=== PATIENT | male | born 1970 | race Caucasian/White ===

== ENCOUNTER 2017-05-28 23:49 | Observation (INO) | payer BC, OTHER ==
[~2017-05-28] VITALS: Ht 175.3 cm; Wt 73.3 kg
[2017-05-29 00:19] LABS: HEMATOCRIT 45.2 % (42-52); HEMOGLOBIN 16.2 g/dL (14.0-18.0); MEAN CELL VOLUME 88.3 fL (80-100); MEAN CORPUSCULAR HEMOGLOBIN 31.6 pg (25-34); MEAN CORPUSCULAR HGB CONC 35.8 g/dl (32-36); MEAN PLATELET VOLUME 11.2 fL (7.4-10.4); PLATELET COUNT 239 K/uL (130-400); RED CELL DISTRIBUTION WIDTH CV 12.8 % (11.5-14.5); RED CELL DISTRIBUTION WIDTH SD 40.9 fL (36.4-46.3); WHITE BLOOD COUNT 17.14 K/uL (4.8-10.8)
--- NOTE | 2017-05-29 00:26 | EMERGENCY ROOM VISIT NOTE ---
History Report prepared by John: Mary Jane Lizarraga Under the Supervision of: Dr. Shelby Agosto D.O. First contact with patient: 23:51 Chief Complaint: CHEST PAIN Stated Complaint: CHEST PAIN History of Present Illness The patient is a 47 year old male who presents to the Emergency Room with complaints of constant chest pain beginning 1 hour ago. The patient states that tonight he had a pain in his left arm before he went to bed. He reports that 1 hour ago he woke up with severe chest pain and had shortness of breath. He notes that his gave him 2 aspirin and shortly after he broke out into a sweat before calling an ambulance. The patient states that he got 2 nitroglycerin en route to the hospital and the second one took his pain away. He complains of a headache from the nitroglycerin and shoulder and arm tightness. He denies any abdominal pain, leg cramping, and leg swelling. He notes that his mom has a history of triple bypass at 73 and his father also has had heart issues. The patient reports that he is a smoker and has not seen a doctor in 20 years. Source of History: patient Onset: 1 hour ago Position: chest Timing: constant Associated Symptoms: No abdominal pain Note: Pt complains of shoulder and arm tightness. He denies any leg cramping and leg swelling. Review of Systems See HPI for pertinent positives & negatives. A total of 10 systems reviewed and were otherwise negative. Past Medical & Surgical Medical Problems: (1) Acid reflux Family History No pertinent family history stated. Social History Marital Status: Housing Status: lives with significant other Occupation Status: employed Current/Historical Medications No Active Prescriptions or Reported Meds Allergies Coded Allergies: No Known Allergies (Unverified , 05/29/17) Physical Exam Vital Signs Date Time Temp Pulse Resp B/P (MAP) Pulse Ox O2 Delivery O2 Flow Rate FiO2 05/29/17 00:31 83 97/59 05/29/17 00:19 84 18 96 05/29/17 00:01 108/71 05/28/17 23:57 87 05/28/17 23:54 97 Room Air 05/28/17 23:52 122/74 05/28/17 23:51 36.5 89 18 122/74 97 Room Air Physical Exam HEENT: Head - normocephalic and atraumatic Pupils are equal, round, and reactive to light. Extraocular eye muscles are intact, and sclera are anicteric. Nose - moist nasal mucosa without discharge. Mouth - moist buccal mucosa. Oropharynx is nonerythematous and there is no tonsillar exudate or edema noted. Neck: Supple; no JVD, nuchal rigidity, cervical lymphadenopathy, or auscultated bruits. Heart: Regular rate and rhythm. There is a normal S1 and S2 with no murmurs, clicks, or gallops appreciated. Lungs: Clear to auscultation bilaterally with no wheezes, rales, or rhonchi. Abdomen: Soft, completely nontender, nondistended, with good bowel sounds. There are no palpable pulsatile masses or hepatosplenomegaly. There is no guarding, rigidity, or rebound noted. Extremities: No evidence of cyanosis, clubbing, or edema. There are easily palpable peripheral pulses. Skin: warm and dry with good turgor and no rashes. Medical Decision & Procedures ER Provider Diagnostic Interpretation: X-ray results as stated below per interpretation by me: Chest X-Ray: No cardiomegaly, narrow mediastinum, no pulmonary infiltrates. Laboratory Results Test 05/28/17 23:15 05/29/17 00:29 RDW Standard Deviation 40.9 fL (36.4-46.3) RDW Coefficient of Variation 12.8 % (11.5-14.5) Mean Platelet Volume 11.2 fL (7.4-10.4) Est Creatinine Clear Calc Drug Dose 68.8 ml/min Creatine Kinase MB 0.5 ng/ml (0.5-3.6) Creatine Kinase MB Ratio (0-3.0) Prothrombin Time 10.0 SECONDS (9.0-12.0) Prothromb Time International Ratio 1.0 (0.9-1.1) Activated Partial Thromboplast Time 24.0 SECONDS (21.0-31.0) Partial Thromboplastin Ratio 0.9 Total Creatine Kinase 66 U/L (39-308) Laboratory results per my review. Medications Administered Medications (Trade) Dose Ordered Sig/Shayla Route Start Time Stop Time Status Last Admin Dose Admin Fentanyl Citrate (Fentanyl Inj) 50 mcg NOW ONCE IV 05/29/17 01:30 05/29/17 01:31 DC 05/29/17 01:23 50 MCG Procedure 0130: Fentanyl Inj 50mcg IV. ECG Indication: chest pain Rate (beats per minute): 79 Rhythm: normal sinus Findings: no acute ischemic change, no ectopy Change: EKG #2: Normal Sinus, 73, no acute ischemia, no ectopy. ED Course 2350: Past medical records reviewed. The patient was evaluated in room A11. A complete history and physical exam was performed. Labs were drawn as above. A twelve-lead EKG was obtained as described above. 2354: I reviewed the two prehospital EKGs. The patient had a portable chest x- ray as described above. 0101: I reevaluated and updated the patient. He is having chest tightness. 0122: I reevaluated the patient. He is still having pain. 0130: Fentanyl Inj 50mcg IV. 0135: Discussed the patient's case with Dr. Seals of [facility]. The patient will be evaluated for further management. 0147: Upon reevaluation, I discussed findings and results with the patient. He verbalized agreement of the treatment plan. [facility] The patient will be evaluated for further management and care. Medical Decision The patient is a 47 year old male who presents to the ED with chest pain. Differential diagnosis includes STEMI, ACS, aortic dissection, GERD, costochondritis. . LABS: WBC 17.1 most likely secondary to demargination Stable H&H Glucose 124 Normal Coags Negative Cardiac Enzymes Normal Renal Function This is a 47-year-old male patient who presents to the emergency department with a sudden onset of chest discomfort. The patient describes some discomfort in the left arm prior to going to sleep but then awoke with severe pain in the left anterior chest. He was given nitroglycerin by EMS with complete relief of his symptoms. The patient does have a strong family history of heart disease. He does not see a physician regularly. He does smoke. Cardiac enzymes were negative. EKG showed no ischemic changes. The patient's chest discomfort did return while he was here in the emergency department. His blood pressure was marginal so I did not for cough given him nitroglycerin. He was given 50 g of IV fentanyl which did relieve his symptoms. [facility] will [facility] for further management. Medication Reconcilliation Current Medication List: was personally reviewed by me Blood Pressure Screening Patient's blood pressure: Normal blood pressure Blood pressure disposition: Did not require urgent referral Consults Time Called: 012 Consulting Physician: Dr. Arnel Madrid Returned Call: 0135 Discussed the patient's case with Dr. Thomas. The patient will be evaluated for further management. Impression Primary Impression: Left sided chest pain Scribe Attestation The scribe's documentation has been prepared under my direction and personally reviewed by me in its entirety. I confirm that the note above accurately reflects all work, treatment, procedures, and medical decision making performed by me. Departure Information Dispostion Being Evaluated By Hospitalist Prescriptions No Active Prescriptions or Reported Meds Referrals Shawna Belle M.D. (MEDICAL) (PCP) Patient Instructions My [facility]
[2017-05-29 00:50] LABS: BLOOD UREA NITROGEN 18 mg/dl (7-18); CALCIUM 8.6 mg/dl (8.5-10.1); CARBON DIOXIDE 24 mmol/L (21-32); CKMB 0.5 ng/ml (0.5-3.6); GLUCOSE 124 mg/dl (70-99); SODIUM 136 mmol/L (136-145)
[2017-05-29 01:06] LABS: POTASSIUM 3.9 mmol/L (3.5-5.1)
[2017-05-29] MEDS ORDERED: FENTANYL CITRATE INJ 50 MCG/1 ML 2 ML VIAL IV ONE (01:30)
--- NOTE | 2017-05-29 01:59 | History and Physical ---
History & Physical Date & Time of Service: May 29, 2017 at 01:58 . Chief Complaint: chest pain . Primary Care Physician: Shawna Belle M.D. (MEDICAL) . History of Present Illness Source: patient, family, hospital records 47 YO male followed by Dr. Belle for Family Medicine. He has enjoyed good health. History of GERD; no other problems. This evening he experienced some left arm pain as he was retiring to bed around 21:45. At 2230 he experienced severe midsternal pressure radiating to his left arm, associated with SOB and diaphoresis. His gave him 1000 mg of aspirin and called 911. Received 2 doses of SL NTG en route to the ED with relief of symptoms. No exertional chest pain or dyspnea. Known risk factors for ischemic heart disease: smoking, family history. Drinks about 3 pots of coffee and 80 ounces of iced tea daily. Has history of GERD, but symptoms tonight were different. . Past Medical/Surgical History Chronic Medical Problems: (1) Acid reflux Status: Chronic Past Surgical History: none . Family History FATHER Diabetes mellitus Colon cancer Coronary artery disease MOTHER Diabetes mellitus Coronary artery disease BROTHER Diabetes mellitus Social History Smoking Status: Current Every Day Smoker Alcohol Use: occasionally Marital Status: Multi-Drug Resistant Organisms History of MDRO: No Allergies Coded Allergies: No Known Allergies (Unverified , 05/29/17) Home Medications No Active Prescriptions or Reported Meds Review of Systems Constitutional: + fever (few days ago associated with rhinitis and cough), No weight loss Eyes: No worsening of vision, No diplopia ENT: + nasal symptoms Respiratory: + cough (few days ago, improved), No dyspnea on exertion Cardiovascular: + problem reported (as noted in HPI) Abdomen: + diarrhea (last 2 days), No nausea, No vomiting, No GI bleeding Musculoskeletal: + joint pain (knee pain) Genitourinary - Male: No hematuria, No dysuria Neurologic: + problem reported (headache after NTG) Endocrine: No excessive thirst, No excessive urination Hematologic / Lymphatic: No abnormal bleeding/bruising Integumentary: No rash, No new/changing skin lesions Physical Exam Vital Signs Date Time Temp Pulse Resp B/P (MAP) Pulse Ox O2 Delivery O2 Flow Rate FiO2 05/29/17 00:31 83 97/59 05/29/17 00:19 84 18 96 05/29/17 00:01 108/71 05/28/17 23:57 87 05/28/17 23:54 97 Room Air 05/28/17 23:52 122/74 05/28/17 23:51 36.5 89 18 122/74 97 Room Air General Appearance: WD/WN, no apparent distress Head: normocephalic, atraumatic Eyes: normal inspection, PERRL, EOMI, sclerae normal ENT: normal ENT inspection, hearing grossly normal, pharynx normal Neck: supple, no adenopathy, thyroid normal, no JVD, trachea midline Respiratory/Chest: lungs clear, no respiratory distress, no accessory muscle use Cardiovascular: regular rate, rhythm, no edema, no gallop, no JVD, no murmur, normal peripheral pulses Abdomen/GI: normal bowel sounds, non tender, soft, no organomegaly, no pulsatile mass Extremities/Musculoskelatal: normal inspection, no calf tenderness, normal capillary refill, no pedal edema Neurologic/Psych: staff auditor II-XII nml as tested (PERRL, EOMI, no facial palsy), no motor/sensory deficits (motor strength upper and lower extremity intact) Skin: normal color, warm/dry, no rash Lymphatic: no adenopathy (cervical) Diagnostics Laboratory Results Results Past 24 Hours Test 05/28/17 23:15 05/29/17 00:29 Range/Units White Blood Count 17.14 4.8-10.8 K/uL Red Blood Count 5.12 4.7-6.1 M/uL Hemoglobin 16.2 14.0-18.0 g/dL Hematocrit 45.2 42-52 % Mean Corpuscular Volume 88.3 80-100 fL Mean Corpuscular Hemoglobin 31.6 25-34 pg Mean Corpuscular Hemoglobin Concent 35.8 32-36 g/dl RDW Standard Deviation 40.9 36.4-46.3 fL RDW Coefficient of Variation 12.8 11.5-14.5 % Platelet Count 239 130-400 K/uL Mean Platelet Volume 11.2 7.4-10.4 fL Sodium Level 136 136-145 mmol/L Potassium Level 3.9 3.5-5.1 mmol/L Chloride Level 104 98-107 mmol/L Carbon Dioxide Level 24 21-32 mmol/L Anion Gap 8.0 3-11 mmol/L Blood Urea Nitrogen 18 7-18 mg/dl Creatinine 1.30 0.60-1.40 mg/dl Est Creatinine Clear Calc Drug Dose 68.8 ml/min Estimated GFR () 74.3 Estimated GFR (Non- 64.1 BUN/Creatinine Ratio 13.6 10-20 Random Glucose 124 70-99 mg/dl Calcium Level 8.6 8.5-10.1 mg/dl Total Creatine Kinase 66 39-308 U/L Creatine Kinase MB 0.5 0.5-3.6 ng/ml Creatine Kinase MB Ratio 0-3.0 Troponin I < 0.015 0-0.045 ng/ml Prothrombin Time 10.0 9.0-12.0 SECONDS Prothromb Time International Ratio 1.0 0.9-1.1 Activated Partial Thromboplast Time 24.0 21.0-31.0 SECONDS Partial Thromboplastin Ratio 0.9 Diagnostic Radiology Chest x-ray reviewed. Normal cardiac silhouette. No infiltrates, effusions, CHF. (preliminary interpretation by undersigned) . EKG EKG performed at 23:51 reviewed and demonstrated NSR at 80 / minute, no acute ST or T-wave abnormalities. EKG performed at 01:01 reviewed and demonstrated NSR at 73 / minute, no acute ST or T-wave abnormalities. . Impression Assessment and Plan CHEST PAIN New onset chest pain today at rest, relieved by NTG. Troponin normal. No acute EKG changes. No exertional CP / SOB. Risk factors for CAD: smoking, family history (both parents). Check serial troponins and EKG's. Check echo. Consult Cardiology. Consider noncardiac (GI) etiologies if cardiac work-up negative. SMOKING Smoking cessation counseling. VTE PROPHYLAXIS Very low risk for VTE. Prophylaxis not indicated. Ambulate. DISPOSITION Expected discharge to home. Family Medicine follow-up with Dr. Belle. . VTE Prophylaxis Given or contraindicated: Treatment not indicated
[2017-05-29] MEDS ORDERED: ACETAMINOPHEN 325 MG TAB PO PRN (02:00)
[2017-05-29] MEDS ORDERED: MoRPHine SULFATE 2 MG/ML CARP IV PRN (02:00)
[2017-05-29] MEDS ORDERED: ALUMINUM/MAGNESIUM/SIMETH (MAALOX MAX) 30 ML UDC PO PRN (02:00)
[2017-05-29] MEDS ORDERED: NITROGLYCERIN 0.4 MG SL PER TAB CHARGE SL PRN (02:00)
[2017-05-29 02:45] VITALS: O2SAT 97
--- NOTE | 2017-05-29 02:55 | NUR ---
A: pt received into room 287-1 from ED. pt oriented to room and call mosquera system. child monitor applied and VS obtained. for complete assessment, see EMR. code word and fall agreement signed. will continue to monitor.
[2017-05-29] MEDS ORDERED: IV FLUIDS COMPLETED PRN (03:00)
[2017-05-29 03:08] VITALS: BP 121/74; PULSE 76; TEMP 36.5; Ht 175.3 cm; Wt 73.3 kg
[2017-05-29] MEDS ORDERED: D5W AND LACTATED RINGERS 1,000 ML IV SCH (03:15)
--- NOTE | 2017-05-29 04:00 | NUR ---
OBS: pt alert and oriented X4, resting comfortably in bed. VSS on room air. denies chest pain and SOB. lung sounds clear throughout. case monitor in place, sinus rhythm on the monitor. pt OOB independently in the room. pt NPO. cardiology to see pt in the morning. call mosquera within reach. will continue to monitor.
[2017-05-29 04:45] VITALS: BP 94/57; PULSE 72; TEMP 36.7; O2SAT 98
--- NOTE | 2017-05-29 06:46 | DIAGNOSTIC IMAGING REPORT ---
CHEST ONE VIEW PORTABLE CLINICAL HISTORY: 47 years-old Male presenting with eval for cp. TECHNIQUE: Portable upright AP view of the chest was obtained. COMPARISON: 04/12/2007. FINDINGS: Cardiomediastinal silhouette normal. Lungs and pleural spaces clear. Osseous structures normal. Upper abdomen normal. IMPRESSION: 1. No acute cardiopulmonary disease. Electronically signed by: Chau Prater M.D. 05/29/2017 6:44 AM Dictated Date/Time: 05/29/2017 6:44 AM
[2017-05-29 06:48] LABS: HEMATOCRIT 44.7 % (42-52); HEMOGLOBIN 15.3 g/dL (14.0-18.0); MEAN CELL VOLUME 88.3 fL (80-100); MEAN CORPUSCULAR HEMOGLOBIN 30.2 pg (25-34); MEAN CORPUSCULAR HGB CONC 34.2 g/dl (32-36); MEAN PLATELET VOLUME 10.2 fL (7.4-10.4); PLATELET COUNT 204 K/uL (130-400); RED CELL DISTRIBUTION WIDTH SD 41.5 fL (36.4-46.3); WHITE BLOOD COUNT 11.26 K/uL (4.8-10.8)
[2017-05-29 07:27] LABS: ALBUMIN 3.4 gm/dl (3.4-5.0); ALT/SGPT 41 U/L (12-78); BLOOD UREA NITROGEN 16 mg/dl (7-18); CALCIUM 8.2 mg/dl (8.5-10.1); CARBON DIOXIDE 26 mmol/L (21-32); CHOLESTEROL 108 mg/dl (0-200); CREATININE 1.18 mg/dl (0.60-1.40); GLUCOSE 106 mg/dl (70-99); LIPASE 114 U/L (73-393); POTASSIUM 3.9 mmol/L (3.5-5.1); SODIUM 139 mmol/L (136-145)
[2017-05-29 07:32] LABS: ALKALINE PHOSPHATASE 55 U/L (45-117); AST/SGOT 12 U/L (15-37); LDL CHOLESTEROL CALCULATED 57 mg/dl; TOTAL PROTEIN 6.9 gm/dl (6.4-8.2)
--- NOTE | 2017-05-29 08:00 | NUR ---
A/OBS: Alert and oriented x4. VSS on room air. Resting comfortably in bed at this time. Denies pain, chest pain or shortness of breath. Monitor in place with NSR noted. IV fluids infusing as ordered. NPO for stress echo today. Plans to return home on discharge. Continue to monitor.
[2017-05-29 08:02] VITALS: BP 116/76; PULSE 83; TEMP 36.8; O2SAT 97
[2017-05-29] MEDS ORDERED: ASPIRIN 81 MG ECTAB PO SCH (09:00)
--- NOTE | 2017-05-29 10:45 | Cardiology Consultation ---
Cardiology Consultation Date of Consultation: May 29, 2017 Requesting Physician: Dr. Seals Attending Inside Channel Account Manager: Dr. Galindo (Cassidy Guillory PA-C) History of Present Illness Patient is a 47 year old male with history of chronic tobacco abuse smoking 1 PPD, family history of premature CAD in mother, father, brother, who personally takes no medications as outpatient and has not sought medical treatment in > 10 years. Patient was in usual state of health yesterday. prior to going to bed he noted left arm pain. He fell asleep and was awoken about 1 hour later with substernal chest heaviness associated with diaphoresis, and shortness of breath. gave 1000 mg of ASA and called 911. En route he was treated with 2 SL nitro with mild improvement in pain. In ER, chest pain and symptoms improved. EKG was without ischemic changes. Cardiac enzymes unremarkable x 2. other labs within normal limits. At time of consult, patient admits to intermittent left sided chest tightness since admission. Waxing/waning symptoms. Not related to exertional activities. has 2/10 discomfort right now. No other symptoms currently. No diaphoreses, shortness of breath, nausea, palpitations or tachypalpitations. He admits to mild left sided arm/shoulder tightness over the last few months, but attributed this to carrying heavy objects and musculoskeletal injury. He is active on a daily basis at work. Does not formally exercise. He reports having a fever on Thursday with associated upper respiratory symptoms, but now resolved. He denies prior history of CAD, [place], CHF. No prior echo/stress test. (Cassidy Guillory PA-C) Past Medical/Surgical History Problem List: Medical Problems: (1) Acid reflux (Cassidy Guillory PA-C) Family History Colon cancer FATHER Coronary artery disease FATHER MOTHER Diabetes mellitus FATHER MOTHER BROTHER Father with [place] age 50's, Mother with stents in her 60's and CABG age 70's. Brother with "heart condition" but unsure of details. (Cassidy Guillory PA-C) Colon cancer FATHER Coronary artery disease FATHER MOTHER Diabetes mellitus FATHER MOTHER BROTHER (Donta Galindo D.OCarmen) Social History Smoking Status: Current Every Day Smoker Alcohol Use: occasionally Marital Status: Occupation: employed (Cassidy Guillory PA-C) Review Of Systems General: The patient denies weight change, night sweats, fever, chills. Head: The patient denies headache and prior head trauma. Cardiovascular: The patient denies chest pain or chest discomfort, dyspnea on exertion, palpitations, PND, orthopnea, edema, spontaneous shortness of breath, syncope and near syncope. Pulmonary: The patient denies cough, wheeze, pleurisy, hemoptysis, sputum, and excessive snoring. Gastrointestinal: The patient denies nausea, vomiting, diarrhea, constipation, bloating, hematemesis, hematochezia, and abdominal pain. Skin: The patient denies diaphoresis and rash. Musculoskeletal: The patient denies joint pain, joint swelling, myalgia, back pain, neck pain and prior injuries. Neurological: The patient denies prior stroke and seizures (Cassidy Guillory PA-C) Allergies Coded Allergies: No Known Allergies (Unverified , 05/29/17) Medications Reported Home Medications Medications Dose Route/Sig Max Daily Dose Days Date Category No Active Prescriptions or Reported Medications Rx (Cassidy Guillory PA-C) Physical Exam Vital Signs (Last 8hrs): Last 8 Hrs Date Time Temp Pulse Resp B/P (MAP) Pulse Ox O2 Delivery O2 Flow Rate FiO2 05/29/17 08:02 36.8 83 20 116/76 (89) 97 05/29/17 08:00 Room Air 05/29/17 04:45 36.7 72 16 94/57 (69) 98 Room Air 05/29/17 04:00 Room Air 05/29/17 03:08 36.5 76 18 121/74 Room Air 05/29/17 02:45 36.5 73 18 108/80 97 General Appearance: Alert and Oriented x3. NAD. Head: Normocephalic Atraumatic. Eyes: PERRLA, EOMI, conjunctiva and sclera clear Neck: Supple. No carotid bruits noted. No JVD. No HJD. Respiratory: Breath sounds clear to auscultation bilaterally. No w/r/r. Cardiovascular: Reg rate and rhythm. S1 and S2 noted. No murmurs, rubs, gallops. PMI non displace. Abdomen: Normal bowel sounds, soft nontender. no abdominal bruits. Extremities: No edema, no clubbing or cyanosis. distal pulses 2/4 bilaterally. Neuro: No focal deficits. Psychiatric: Normal affect. (Cassidy Guillory, CARLEEN) Data Last 24 Hours Test 05/28/17 23:15 05/29/17 00:29 05/29/17 06:30 White Blood Count 17.14 K/uL 11.26 K/uL Red Blood Count 5.12 M/uL 5.06 M/uL Hemoglobin 16.2 g/dL 15.3 g/dL Hematocrit 45.2 % 44.7 % Mean Corpuscular Volume 88.3 fL 88.3 fL Mean Corpuscular Hemoglobin 31.6 pg 30.2 pg Mean Corpuscular Hemoglobin Concent 35.8 g/dl 34.2 g/dl RDW Standard Deviation 40.9 fL 41.5 fL RDW Coefficient of Variation 12.8 % 13.0 % Platelet Count 239 K/uL 204 K/uL Mean Platelet Volume 11.2 fL 10.2 fL Sodium Level 136 mmol/L 139 mmol/L Potassium Level mmol/L 3.9 mmol/L 3.9 mmol/L Chloride Level 104 mmol/L 107 mmol/L Carbon Dioxide Level 24 mmol/L 26 mmol/L Anion Gap 8.0 mmol/L 6.0 mmol/L Blood Urea Nitrogen 18 mg/dl 16 mg/dl Creatinine 1.30 mg/dl 1.18 mg/dl Est Creatinine Clear Calc Drug Dose 68.8 ml/min 75.8 ml/min Estimated GFR () 74.3 83.5 Estimated GFR (Non- 64.1 72.0 BUN/Creatinine Ratio 13.6 13.4 Random Glucose 124 mg/dl 106 mg/dl Calcium Level 8.6 mg/dl 8.2 mg/dl Total Creatine Kinase U/L 66 U/L Creatine Kinase MB 0.5 ng/ml Creatine Kinase MB Ratio Troponin I < 0.015 ng/ml < 0.015 ng/ml Prothrombin Time 10.0 SECONDS Prothromb Time International Ratio 1.0 Activated Partial Thromboplast Time 24.0 SECONDS Partial Thromboplastin Ratio 0.9 Total Bilirubin 0.3 mg/dl Aspartate Amino Transf (AST/SGOT) 12 U/L Alanine Aminotransferase (ALT/SGPT) 41 U/L Alkaline Phosphatase 55 U/L Total Protein 6.9 gm/dl Albumin 3.4 gm/dl Globulin 3.5 gm/dl Albumin/Globulin Ratio 1.0 Triglycerides Level 119 mg/dl Cholesterol Level 108 mg/dl HDL Cholesterol 27 mg/dl LDL Cholesterol, Calculated 57 mg/dl VLDL Cholesterol, Calculated 24 mg/dl Cholesterol/HDL Ratio 4.0 Lipase 114 U/L Imaging: Chest xray: no active disease EKG: NSR with sinus arrhythmia. No abnormal ST/T wave changes Telemetry reviewed: NSR, no arrhythmias (Cassidy Guillory PA-C) Assessment & Plan 1. Chest pain -normal cardiac enzymes x2 -non ischemic EKG -risk factors for CAD include family history, chronic tobacco abuse 2. Family hsitory of CAD 3. Tobacco abuse. PLAN: Exercise stress echo to evaluate LV function at rest and with stress. R/O ischemia given symptoms and risk factors for underlying ishcemic heart disease. Continue ASA 81 mg daily. LDL well controlled. Further recommendations pending results of exercise stress echo. Smoking cessation encouraged Case discussed with Dr. Galindo (Cassidy Guillory PA-C) Cardiology attending: Pt seen and examined, agree with findings and assessment as per Cassidy Jackman. Atypical chest discomfort at rest. Stress testing nonischemic having completed 10 minutes on Varinder protocol. Did have leg discomfort on treadmill consistent with claudication. Recommend asa 81mg daily, enteric coated tablets, smoking cessation (had lengthy discussion) and increasing exercise. If no improvement should be evaluated with Dr. Burns of [facility] [place]. ok to d/c from cardiac standpoint. No need for antihypertensive or statin at this time. F/u with pcp for risk factor modifications and monitoring. (Donta Galindo, D.O.)
[2017-05-29 11:14] VITALS: BP 111/73; PULSE 84; TEMP 36.5; O2SAT 96
[2017-05-29] MEDS ORDERED: NURSING VERBAL MED ORDER ONE (11:30)
--- NOTE | 2017-05-29 12:00 | NUR ---
A/OBS: Assessment unchanged. Cleared by cardiology for discharge today, hospitalist notified. Discharge this afternoon pending hospitalist evaluation. Continue to monitor for now.
--- NOTE | 2017-05-29 12:21 | EXERCISE STRESS ECHO ---
*NOTICE TO RECEIVING LIBERTARIAN AGENCY This information is strictly Confidential and protected under [place] law. [place] law prohibits you from making any further disclosure of this information unless further disclosure is expressly permitted by the written consent of the person to whom it pertains or is authorized by law. A general authorization for the release of medical or other information is not sufficient for this purpose. Hospital accepts no responsibility if the information is made available to any other person, INCLUDING THE PATIENT. Interpretation Summary * Name: COTY RODRIGUEZ Study Date: 05/29/2017 09:46 AM BP: 103/62 mmHg * Patient Location: [facility]\S\N287\S\1 HR: 66 * : 1970 (M/d/yyyy) Gender: Male Height: 69 in * Age: 47 yrs Ethnicity: [place] Weight: 161 lb * Ordering Physician: Donta Galindo * Referring Physician: Self, Referred * Performed By: Shirley Hernandez RCS * * Reason For Study: CHEST PAIN * BSA: 1.9 m2 * -- Conclusions -- * Nonischemic exercise stress echocardiogram. * No arrhythmias. * Normal HR and BP response to exercise. * Above average exercise tolerance. * Testing terminated due to leg pain. * No chest pain was reproduced with stress. * At rest, normal LV chamber size with mild concentric LVH. * Normal LV systolic function, EF 60-65%. * No segmental left ventricular wall motion abnormalities are noted. * Normal diastolic function. * No significant valvular pathology. Procedure Details * ECHOEX, CPT #[id number] * ECHO COLOR FLOW, CPT #[id number] * ECHO DOPPLER, CPT #[id number] Left Ventricle * The left ventricle is normal in size. * There is mild concentric left ventricular hypertrophy. * Left ventricular systolic function is normal. * No segmental left ventricular wall motion abnormalities are noted. * Ejection Fraction = 60-65%. * Resting wall motion: Normal. Stress wall motion: Appropriate increase in Left ventricular systolic function and decrease in cavity size. No stress induced segmental wall motion abnormalities. Right Ventricle * The right ventricular cavity size is normal (basal dimension <4.2 cm in right ventricular apical 4-chamber view). * The right ventricular systolic function is normal as assessed by tricuspid annular plane systolic excursion (TAPSE) (normal >1.5 cm). Atria * The left atrial size is normal. * Right atrial size is normal. * No ASD detected; PFO is not assessed. Mitral Valve * The mitral valve is normal in structure and function. Tricuspid Valve * The tricuspid valve is normal in structure and function. Aortic Valve * The aortic valve is not well visualized. * No hemodynamically significant valvular aortic stenosis. * There is no significant aortic regurgitation. Pulmonic Valve * The pulmonary valve is not well seen, but the Doppler examination is normal without significant regurgitation or stenosis. Great Vessels * The aortic root is normal size. Pericardium * There is no pericardial effusion. Stress Parameters * Normal baseline electrocardiogram. * No arrhythmia were noted with stress. * The stress portion of this study was personally supervised by the undersigned interpreting physician. * Rest heart rate was '66' BPM. * Rest blood pressure was '103/62' * Maximum heart rate achieved was 157 bpm. * Maximum heart rate was 91 % of maximum age-predicted heart rate. * Maximum blood pressure was '164/52' * Total exercise time was '10:00' * Maximum exercise MET level achieved was '11.70' METS * Maximum treadmill speed was '4.20' miles per hour. * Maximum treadmill elevation was '16.00'% grade. Left Ventricular Diastolic Function * Pulse wave TDI of the anterior and posterior mitral annulas demonstrates normal LV relaxation MMode 2D Measurements and Calculations IVSd 1.2 cm IVSs 1.5 cm LVIDd 4.3 cm LVIDs 3.3 cm LVPWd 1.1 cm LVPWs 1.3 cm IVS/LVPW 1.2 FS 23.9 % EDV(Teich) 82.3 ml ESV(Teich) 42.8 ml EF(Teich) 48.0 % EDV(cubed) 78.6 ml ESV(cubed) 34.6 ml EF(cubed) 56.0 % % IVS thick 25.2 % % LVPW thick 21.7 % LV mass(C)d 169.4 grams LV mass(C)dI 89.9 grams/m\S\2 LV mass(C)s 157.4 grams LV mass(C)sI 83.6 grams/m\S\2 SV(Teich) 39.5 ml SI(Teich) 21.0 ml/m\S\2 SV(cubed) 44.0 ml SI(cubed) 23.3 ml/m\S\2 Ao root diam 2.9 cm Ao root area 6.8 cm\S\2 ACS 2.0 cm LA dimension 2.6 cm LA/Ao 0.89 LVAd ap4 34.8 cm\S\2 LVLd ap4 8.7 cm EDV(MOD-sp4) 112.9 ml EDV(sp4-el) 117.7 ml LVAs ap4 23.5 cm\S\2 LVLs ap4 7.8 cm ESV(MOD-sp4) 58.8 ml ESV(sp4-el) 60.4 ml EF(MOD-sp4) 48.0 % EF(sp4-el) 48.7 % LVAd ap2 28.1 cm\S\2 LVLd ap2 8.0 cm EDV(MOD-sp2) 82.7 ml EDV(sp2-el) 83.4 ml LVAs ap2 16.8 cm\S\2 LVLs ap2 6.7 cm ESV(MOD-sp2) 36.3 ml ESV(sp2-el) 35.7 ml EF(MOD-sp2) 56.1 % EF(sp2-el) 57.1 % LVLd %diff -8.23 % EDV(MOD-bp) 99.7 ml LVLs %diff -16.62 % ESV(MOD-bp) 49.4 ml EF(MOD-bp) 50.5 % SV(MOD-sp4) 54.1 ml SI(MOD-sp4) 28.7 ml/m\S\2 SV(MOD-sp2) 46.4 ml SI(MOD-sp2) 24.6 ml/m\S\2 SV(MOD-bp) 50.3 ml SI(MOD-bp) 26.7 ml/m\S\2 SV(sp4-el) 57.4 ml SI(sp4-el) 30.5 ml/m\S\2 SV(sp2-el) 47.7 ml SI(sp2-el) 25.3 ml/m\S\2 Doppler Measurements and Calculations MV E max luis 65.8 cm/sec MV A max luis 50.7 cm/sec MV E/A 1.3 MV P1/2t max luis 71.6 cm/sec MV P1/2t 108.5 msec MVA(P1/2t) 2.0 cm\S\2 MV dec slope 193.3 cm/sec\S\2 MV dec time 0.21 sec Ao V2 max 102.7 cm/sec Ao max PG 4.2 mmHg Ao max PG (full) 1.0 mmHg LV V1 max PG 3.2 mmHg LV V1 max 89.5 cm/sec PA V2 max 94.0 cm/sec PA max PG 3.5 mmHg
--- NOTE | 2017-05-29 13:02 | Progress Note ---
Medicine Progress Note Date & Time of Visit: May 29, 2017 at 12:34. Subjective Pt was seen and examined Lying in bed with at bedside with no distress Pt said that he feels fine Denies any chest pain, palpitation, dizziness and SOB Objective Last 8 Hrs Date Time Temp Pulse Resp B/P (MAP) Pulse Ox O2 Delivery O2 Flow Rate FiO2 05/29/17 12:00 Room Air 05/29/17 11:14 36.5 84 16 111/73 (86) 96 05/29/17 08:02 36.8 83 20 116/76 (89) 97 05/29/17 08:00 Room Air 05/29/17 04:45 36.7 72 16 94/57 (69) 98 Room Air Physical Exam: General- No acute distress Head- atraumatic Eyes- PERRL, EOMI ENT- oropharynx clear Neck- supple, no JVD Lungs- clear to auscultation Heart- regular rhythm; no murmur Abdomen- normal bowel sounds, soft Extremities- no pretibial edema, no calf tenderness Neuro- alert, oriented x 3; PERRL, EOMI Skin- warm & dry Laboratory Results: Last 24 Hours Test 05/28/17 23:15 05/29/17 00:29 05/29/17 06:30 05/29/17 12:04 White Blood Count 17.14 K/uL 11.26 K/uL Red Blood Count 5.12 M/uL 5.06 M/uL Hemoglobin 16.2 g/dL 15.3 g/dL Hematocrit 45.2 % 44.7 % Mean Corpuscular Volume 88.3 fL 88.3 fL Mean Corpuscular Hemoglobin 31.6 pg 30.2 pg Mean Corpuscular Hemoglobin Concent 35.8 g/dl 34.2 g/dl RDW Standard Deviation 40.9 fL 41.5 fL RDW Coefficient of Variation 12.8 % 13.0 % Platelet Count 239 K/uL 204 K/uL Mean Platelet Volume 11.2 fL 10.2 fL Sodium Level 136 mmol/L 139 mmol/L Potassium Level mmol/L 3.9 mmol/L 3.9 mmol/L Chloride Level 104 mmol/L 107 mmol/L Carbon Dioxide Level 24 mmol/L 26 mmol/L Anion Gap 8.0 mmol/L 6.0 mmol/L Blood Urea Nitrogen 18 mg/dl 16 mg/dl Creatinine 1.30 mg/dl 1.18 mg/dl Est Creatinine Clear Calc Drug Dose 68.8 ml/min 75.8 ml/min Estimated GFR () 74.3 83.5 Estimated GFR (Non- 64.1 72.0 BUN/Creatinine Ratio 13.6 13.4 Random Glucose 124 mg/dl 106 mg/dl Calcium Level 8.6 mg/dl 8.2 mg/dl Total Creatine Kinase U/L 66 U/L Creatine Kinase MB 0.5 ng/ml Creatine Kinase MB Ratio Troponin I < 0.015 ng/ml < 0.015 ng/ml Prothrombin Time 10.0 SECONDS Prothromb Time International Ratio 1.0 Activated Partial Thromboplast Time 24.0 SECONDS Partial Thromboplastin Ratio 0.9 Total Bilirubin 0.3 mg/dl Aspartate Amino Transf (AST/SGOT) 12 U/L Alanine Aminotransferase (ALT/SGPT) 41 U/L Alkaline Phosphatase 55 U/L Total Protein 6.9 gm/dl Albumin 3.4 gm/dl Globulin 3.5 gm/dl Albumin/Globulin Ratio 1.0 Triglycerides Level 119 mg/dl Cholesterol Level 108 mg/dl HDL Cholesterol 27 mg/dl LDL Cholesterol, Calculated 57 mg/dl VLDL Cholesterol, Calculated 24 mg/dl Cholesterol/HDL Ratio 4.0 Lipase 114 U/L Assessment & Plan CHEST PAIN Mostly Atypical Risk factor: smoker and family history Troponinx2 normal, 3rd set pending No arrhythmia on tele monitor NO acute ischemic changes on EKG cardiology on board s/p normal stress echo today LDL well controlled OK from cardiac standpoint to discharge home Continue aspirin 81mg Advised pt to cut down on intake coffee Stress ECHO * Nonischemic exercise stress echocardiogram. * No arrhythmias. * Normal HR and BP response to exercise. * Above average exercise tolerance. * Testing terminated due to leg pain. * No chest pain was reproduced with stress. * At rest, normal LV chamber size with mild concentric LVH. * Normal LV systolic function, EF 60-65%. * No segmental left ventricular wall motion abnormalities are noted. * Normal diastolic function. * No significant valvular pathology. SMOKING Counseling on smoking cessation Pt said that his insurance has a program for smoking cessation and will contact them CLAUDICATION Occurs during the 10minutes stress test Advised pt to quit smoking Continue to exercise ELEVATED WBC Mostly due to reactive No sign of infection/ afebrile WBC trending down VTE PROPHYLAXIS Pt ambulating DISPOSITION Discharge home today Follow up with Dr. Belle . Consultants: Cardio Current Inpatient Medications: Current Inpatient Medications Medications (Trade) Dose Ordered Sig/Shayla Route Start Time Stop Time Status Last Admin Dose Admin Acetaminophen (Tylenol Tab) 650 mg Q4H PRN PO 05/29/17 02:00 06/28/17 01:59 Al Hydrox/Mg Hydrox/Simethicone (Maalox Max Susp) 15 ml Q4H PRN PO 05/29/17 02:00 06/28/17 01:59 Nitroglycerin (Nitrostat Tab) 0.4 mg UD PRN SL 05/29/17 02:00 06/28/17 01:59 Morphine Sulfate (MoRPHine SULFATE INJ) 2 mg Q30M PRN IV 05/29/17 02:00 06/12/17 01:59 Aspirin (Ecotrin Tab) 81 mg QAM PO 05/29/17 09:00 06/28/17 08:59 05/29/17 09:28 81 MG Miscellaneous (Iv Fluids Completed) 1 ea PRN PRN N/A 05/29/17 03:00 05/29/18 02:59
[2017-05-29] MEDS ORDERED: ASPI-320 PO (13:06)
--- NOTE | 2017-05-29 13:10 | Discharge Instructions ---
Discharge Instructions Date of Service May 29, 2017. Admission Reason for Admission: Left-Sided Chest Pain Discharge Discharge Diagnosis / Problem: Atypical Chest pain/Tobacco abuse/ Claudiaction Discharge Goals Goal(s): Decrease discomfort, Improve function, Improve disease control Activity Recommendations Activity Limitations: resume your previous activity (as tolerated) . Instructions / Follow-Up Instructions / Follow-Up Follow up with Dr. Salazar (Dr. Belle's colleague) on 06/03 @ 2:25 pm Counseling on smoking cessation Continue exercise activities Reduce your amount of coffee intake Continue aspirin 81 mg daily Current Hospital Diet Patient's current hospital diet: AHA Diet (Heart Healthy) Discharge Diet Recommended Diet: AHA Diet (Heart Healthy) Pending Studies Studies pending at discharge: no Laboratory Results Lipid Panel Test 05/29/17 06:30 Range/Units Triglycerides Level 119 0-150 mg/dl Cholesterol Level 108 0-200 mg/dl HDL Cholesterol 27 mg/dl Cholesterol/HDL Ratio 4.0 LDL Cholesterol, Calculated 57 mg/dl Medical Emergencies . Who to Call and When: Medical Emergencies: If at any time you feel your situation is an emergency, please call 911 immediately. . Non-Emergent Contact Non-Emergency issues call your: Primary Care Provider Call Non-Emergent contact if: you have any medication questions . . "Provider Documentation" section prepared by Jim Dozier. . VTE Core Measure Inpt VTE Proph given/why not?: Treatment not indicated
[2017-05-29 13:12] VITALS: BP 111/73; PULSE 84; TEMP 36.5; O2SAT 96
--- NOTE | 2017-05-29 13:31 | NUR ---
A: MD ordered discharge. Discharge teaching completed, all questions answered. Discharge instructions and all belongings provided to patient. IV site discontinued, catheter intact. at bedside to transport pt. home. Wishes to walk to main entrance for discharge.
--- NOTE | 2017-05-31 18:02 | Discharge Summary ---
Discharge Summary Date of Service May 31, 2017. Discharge Summary Admission Date: May 29, 2017 at 02:01 Discharge Date: May 29, 2017 Discharge Disposition: Home Principal Diagnosis: Atypical Chest pain Secondary Diagnoses/Problems: Tobacco abuse Claudication Procedures: ECHO Interpretation Summary * Name: COTY RODRIGUEZ Study Date: 05/29/2017 09:46 AM BP: 103/62 mmHg * Patient Location: [facility]\\S\\[facility]\\S\\1 HR: 66 * : 1970 (M/d/yyyy) Gender: Male Height: 69 in * Age: 47 yrs Ethnicity: [place] Weight: 161 lb * Ordering Physician: Donta Galindo * Referring Physician: Self, Referred * Performed By: Shirley Hernandez RCS * * Reason For Study: CHEST PAIN * BSA: 1.9 m2 * -- Conclusions -- * Nonischemic exercise stress echocardiogram. * No arrhythmias. * Normal HR and BP response to exercise. * Above average exercise tolerance. * Testing terminated due to leg pain. * No chest pain was reproduced with stress. * At rest, normal LV chamber size with mild concentric LVH. * Normal LV systolic function, EF 60-65%. * No segmental left ventricular wall motion abnormalities are noted. * Normal diastolic function. * No significant valvular pathology. Procedure Details * ECHOEX, CPT #[id number] * ECHO COLOR FLOW, CPT #[id number] * ECHO DOPPLER, CPT #[id number] Left Ventricle * The left ventricle is normal in size. * There is mild concentric left ventricular hypertrophy. * Left ventricular systolic function is normal. * No segmental left ventricular wall motion abnormalities are noted. * Ejection Fraction = 60-65%. * Resting wall motion: Normal. Stress wall motion: Appropriate increase in Left ventricular systolic function and decrease in cavity size. No stress induced segmental wall motion abnormalities. Right Ventricle * The right ventricular cavity size is normal (basal dimension <4.2 cm in right ventricular apical 4-chamber view). * The right ventricular systolic function is normal as assessed by tricuspid annular plane systolic excursion (TAPSE) (normal >1.5 cm). Atria * The left atrial size is normal. * Right atrial size is normal. * No ASD detected; PFO is not assessed. Mitral Valve * The mitral valve is normal in structure and function. Tricuspid Valve * The tricuspid valve is normal in structure and function. Aortic Valve * The aortic valve is not well visualized. * No hemodynamically significant valvular aortic stenosis. * There is no significant aortic regurgitation. Pulmonic Valve * The pulmonary valve is not well seen, but the Doppler examination is normal without significant regurgitation or stenosis. Great Vessels * The aortic root is normal size. Pericardium * There is no pericardial effusion. Stress Parameters * Normal baseline electrocardiogram. * No arrhythmia were noted with stress. * The stress portion of this study was personally supervised by the undersigned interpreting physician. * Rest heart rate was '66' BPM. * Rest blood pressure was '103/62' * Maximum heart rate achieved was 157 bpm. * Maximum heart rate was 91 % of maximum age-predicted heart rate. * Maximum blood pressure was '164/52' * Total exercise time was '10:00' * Maximum exercise MET level achieved was '11.70' METS * Maximum treadmill speed was '4.20' miles per hour. * Maximum treadmill elevation was '16.00'% grade. Left Ventricular Diastolic Function * Pulse wave TDI of the anterior and posterior mitral annulas demonstrates normal LV relaxation CHEST ONE VIEW PORTABLE CLINICAL HISTORY: 47 years-old Male presenting with eval for cp. TECHNIQUE: Portable upright AP view of the chest was obtained. COMPARISON: 04/12/2007. FINDINGS: Cardiomediastinal silhouette normal. Lungs and pleural spaces clear. Osseous structures normal. Upper abdomen normal. IMPRESSION: 1. No acute cardiopulmonary disease. Electronically signed by: Chau Prater M.D. 05/29/2017 6:44 AM Dictated Date/Time: 05/29/2017 6:44 AM Consultations: Cardio Medication Reconciliation New Medications: Aspirin (Aspirin EC Low Dose) 81 Mg Ectab 81 MG PO QAM for 30 Days Admission Information HPI (per Admitting provider): 47 YO male followed by Dr. Belle for Family Medicine. He has enjoyed good health. History of GERD; no other problems. This evening he experienced some left arm pain as he was retiring to bed around 21:45. At 2230 he experienced severe midsternal pressure radiating to his left arm, associated with SOB and diaphoresis. His gave him 1000 mg of aspirin and called 911. Received 2 doses of SL NTG en route to the ED with relief of symptoms. No exertional chest pain or dyspnea. Known risk factors for ischemic heart disease: smoking, family history. Drinks about 3 pots of coffee and 80 ounces of iced tea daily. Has history of GERD, but symptoms tonight were different. . Physical Exam (per Admitting): General Appearance: WD/WN, no apparent distress Head: normocephalic, atraumatic Eyes: normal inspection, PERRL, EOMI, sclerae normal ENT: normal ENT inspection, hearing grossly normal, pharynx normal Neck: supple, no adenopathy, thyroid normal, no JVD, trachea midline Respiratory/Chest: lungs clear, no respiratory distress, no accessory muscle use Cardiovascular: regular rate, rhythm, no edema, no gallop, no JVD, no murmur , normal peripheral pulses Abdomen/GI: normal bowel sounds, non tender, soft, no organomegaly, no pulsatile mass Extremities/Musculoskelatal: normal inspection, no calf tenderness, normal capillary refill, no pedal edema 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 * No arrhythmias. * Normal HR and BP response to exercise. * Above average exercise tolerance. * Testing terminated due to leg pain. * No chest pain was reproduced with stress. * At rest, normal LV chamber size with mild concentric LVH. * Normal LV systolic function, EF 60-65%. * No segmental left ventricular wall motion abnormalities are noted. * Normal diastolic function. * No significant valvular pathology. SMOKING Counseling on smoking cessation Pt said that his insurance has a program for smoking cessation and will contact them CLAUDICATION Occurs during the 10minutes stress test Advised pt to quit smoking Continue to exercise ELEVATED WBC Mostly due to reactive No sign of infection/ afebrile WBC trending down VTE PROPHYLAXIS Pt ambulating DISPOSITION Discharge home today Follow up with Dr. Belle . Total time spent on discharge = 35 minutes This includes examination of the patient, discharge planning, medication reconciliation, and communication with other providers. Discharge Instructions Discharge Instructions Date of Service May 29, 2017. Admission Reason for Admission: Left-Sided Chest Pain Discharge Discharge Diagnosis / Problem: Atypical Chest pain/Tobacco abuse/ Claudiaction Discharge Goals Goal(s): Decrease discomfort, Improve function, Improve disease control Activity Recommendations Activity Limitations: resume your previous activity (as tolerated) . Instructions / Follow-Up Instructions / Follow-Up Follow up with Dr. aSlazar (Dr. Belle's colleague) on 06/03 @ 2:25 pm Counseling on smoking cessation Continue exercise activities Reduce your amount of coffee intake Continue aspirin 81 mg daily Current Hospital Diet Patient's current hospital diet: AHA Diet (Heart Healthy) Discharge Diet Recommended Diet: AHA Diet (Heart Healthy) Pending Studies Studies pending at discharge: no Laboratory Results Lipid Panel Test 05/29/17 06:30 Range/Units Triglycerides Level 119 0-150 mg/dl Cholesterol Level 108 0-200 mg/dl HDL Cholesterol 27 mg/dl Cholesterol/HDL Ratio 4.0 LDL Cholesterol, Calculated 57 mg/dl Medical Emergencies . Who to Call and When: Medical Emergencies: If at any time you feel your situation is an emergency, please call 911 immediately. . Non-Emergent Contact Non-Emergency issues call your: Primary Care Provider Call Non-Emergent contact if: you have any medication questions . . "Provider Documentation" section prepared by Jim Dozier. . VTE Core Measure Inpt VTE Proph given/why not?: Treatment not indicated Additional Copies To Alannah Salazar D.O.
== END 2017-05-29 13:30 | disposition home or self-care (01) ==
LOC: EDBD 23:49 → C.EDA 23:50 → C.MED 05-29 02:01 → ENRESERV 05-29 02:20
PROVIDERS: ADMIT Hospitalist; ATTEND Internal Medicine
DX: R07.89 Other chest pain (principal); F17.200 Nicotine dependence, unspecified, uncomplicated; K21.9 Gastro-esophageal reflux disease without esophagitis; Z83.3 Family history of diabetes mellitus; Z82.49 Family history of ischemic heart disease and other diseases of the circulatory system; Z80.0 Family history of malignant neoplasm of digestive organs

== ENCOUNTER 2023-04-22 18:37 | Inpatient (IN) ==
--- NOTE | 2023-04-22 18:42 | ED Triage Note ---
Date of Service April 22, 2023 History of Present Illness This patient was briefly evaluated while in triage. An abbreviated physical exam was performed. This patient is a 53-year-old Male who presents to the ED for evaluation of infected cyst in left groin x 3 days spreading into scrotum Physical Exam GENERAL: NAD CARDIOVASCULAR: RRR RESPIRATORY: CTA ABDOMEN: BS x 4. Nontender to palpation. Unable to assess area in triage Initial orders for labs and / or imaging were placed and patient was placed in the waiting area until a bed is available. Please see further documentation for the full ED course.
[2023-04-22] MEDS ORDERED: OPTIRAY 320 100ml IV ONE (20:40)
--- NOTE | 2023-04-22 21:35 | CT Scan Report ---
Exam(s): CT PELVIS With Contrast IV Amt: 91 ml optiray 320 EXAM: CT Pelvis With Intravenous Contrast CLINICAL HISTORY: Reason for exam: INFECTED CYST IN LEFT GROIN/SCROTUM. TECHNIQUE: Axial computed tomography images of the pelvis with intravenous contrast. CTDI is 9.09 mGy and DLP is 320.96 mGy-cm. Automated exposure control was utilized for the study. A dose lowering technique was utilized adhering to the principles of ALARA. CONTRAST: Patient received 91 ml optiray 320 of IV contrast COMPARISON: No relevant prior studies available. FINDINGS: Bowel: Unremarkable. No obstruction. No mucosal thickening. Appendix: No findings to suggest acute appendicitis. Intraperitoneal space: Unremarkable. No free air. No significant fluid collection. Bladder: Unremarkable. No mass. Reproductive: LEFT scrotal abscess, measures 4.2 x 2.1 cm and is located immediately deep to the skin surface. Urology evaluation recommended. Bones/joints: No acute fracture. No dislocation. Soft tissues: See above. Vasculature: Unremarkable. No lower abdominal aortic aneurysm. Lymph nodes: Unremarkable. No enlarged lymph nodes. Other findings: The need for testicular ultrasound should be determined clinically. IMPRESSION: LEFT scrotal abscess, measures 4.2 x 2.1 cm and is located immediately deep to the skin surface. Urology evaluation recommended. Electronically signed by: Moses Moreno MD 04/22/23 21:35 PM
--- NOTE | 2023-04-22 21:57 | Emergency Department Note ---
Impression & Plan Scrotal abscess ED Provider Note NAME: COTY RODRIGUEZ AGE: 53 SEX: M : 1970 ARRIVES VIA: Walk-In INFORMANT: Patient, ED PROVIDER(S): Taye Rios MD CHIEF COMPLAINT: Scrotal cyst/infection MEDICAL DECISION MAKING: Patient presented due to concern for possible scrotal abscess. Patient did have an IV established and blood work was obtained. Patient was ordered antibiotics. The patient's blood work showed a white count of 17 with a normal H&H and platelet count the patient's kidney function is unremarkable. Procalcitonin is not elevated. CT of the pelvis does show concern for left scrotal abscess. I did speak with the on-call urology group Mathieu Miranda PA-C the patient was seen and evaluated by Mathieu as well as attending Dr. Juarez and the patient did have a bedside I&D completed of a scrotal abscess. They recommended admission to the medicine service. I did speak with the on-call medicine service Dr. Jeffers the patient was admitted. Discussion w/ other healthcare providers: Mathieu London PA-C and Dr. Juarez with urology Dr. Jeffers with inpatient medicine service Prior /Outside records reviewed: I reviewed a primary care visit note from Dr. Argueta and the patient had been seen earlier that day for similar symptoms and was referred here due to concern for possible abscess necessitating antibiotic treatment and/or additional management. Differential diagnosis: Cellulitis, abscess, MRSA infection, DVT, necrotizing fasciitis, dermatitis, drug eruption, allergic reaction, as well as other pathologies were considered. Diagnostics, as interpreted by me: ECG: none Cardiac monitoring: An order was placed for continuous cardiac monitoring. The monitor shows a rate of 86 with sinus rhythm. Patient was placed on pulse oximetry Medical decision rules: none Imaging studies: I informally interpreted the patient's CT of the pelvis which does show scrotal fluid collection with formal report to follow. HPI: Patient presents due to concern for possible scrotal infection. Patient states that he has had a chronic cyst for some time but that he had been doing some more activity and thinks that it may have aggravated it to cause an infection. Patient does complain of pain for which she has been taking some [id number] Tylenol with some mild relief. Patient has had associated subjective fevers and chills. No reported temperature taken at home. Patient denies any nausea or vomiting. Patient denies any history of diabetes. Patient is a non-smoker. Patient has any chest pains or shortness of breath. PAST MEDICAL HISTORY: See Below PAST SURGICAL HISTORY: See Below SOCIAL HISTORY: See Below HOME MEDICATIONS: See Below ALLERGIES: See Below VITALS: See Below PHYSICAL EXAMINATION: GENERAL: NAD, non-toxic. EYE EXAM: Normal conjunctiva. PERRL, no anisocoria and EOM's grossly intact w/o pain. OROPHARYNX: Moist mucus membranes, grossly normal dentition. NECK: Supple, no nuchal rigidity, no adenopathy, non-tender. No signs of meningismus. FROM of the neck with good chin to chest and neck extension. No stridor. LUNGS: Clear to auscultation. Normal chest wall mechanics. HEART: NSR, no MRG. ABDOMEN: Abdomen soft, non-tender, no masses, no rebound or guarding. BACK: No CVA TTP. SKIN: No rashes and no bruising. : Circumcised, bilateral testicles descended, left-sided lateral scrotal TTP and associated erythema with active drainage. No crepitus. UPPER EXTREMITIES: Upper extremities are grossly normal. LOWER EXTREMITIES: Grossly normal, no edema. NEURO EXAM: A&O x3, cranial nerves II-XII grossly intact, normal speech, moves all 4 extremities. Past Med/Surg History Medical History COVID-19 Pneumonia Social History Smoking Status: Heavy tobacco smoker Tobacco Type: Cigarettes Second Hand Exposure: No; Do You Dip or Chew Tobacco: No; Hx Alcohol Use: No Hx Substance Use: No Preferred Language: Danish Communication Ability: Effective Fire [employer] Required: No Beliefs That Will Affect Care: None Current Living Situation: Spouse Feels Safe at Home: Yes Assistive Devices: None Allergies Allergies Allergy/AdvReac Type Severity Reaction Status Date / Time No Known Allergies Allergy Verified 04/22/23 22:45 Home Meds Home Medications Medication Instructions Recorded Confirmed aspirin 81 mg tablet,delayed 81 mg PO DAILY 04/22/23 04/22/23 release Previous Rx's Medication Instructions Recorded doxycycline hyclate 100 mg tablet 100 mg PO BID 8 days #16 tabs 04/24/23 Results & Data (ED) Vital Signs Vital Signs - 24 hr 04/22/23 18:41 Temperature 37.4 C Temperature Source Temporal Artery Scan Pulse Rate 99 H Respiratory Rate 18 Blood Pressure 142/76 H Blood Pressure Mean 98 Pulse Oximetry 98 Oxygen Delivery Method Room Air Sepsis Recent Fever Within 48 Hours No Sepsis New/Unexplained Change in Mental Status No Sepsis Action Taken by Nursing No Action Required Home Medications Current Medication List: was personally reviewed by me Laboratory Data Attestation: I reviewed the patient's lab results. 04/24/23 07:20 04/24/23 07:20 Lab Results 04/22/23 04/22/23 04/22/23 Range/Units 19:25 19:32 23:36 WBC 17.56 H (4.8-10.8) K/ul RBC 5.12 (4.70-6.10) M/uL Hgb 15.1 (14.0-18.0) g/dl POC Hgb 16.0 (14.0-18.0) g/dl Hct 45.9 (42.0-52.0) % POC Hct 47 (42-52) % MCV 89.6 (80.0-100.0) fL MCH 29.5 (25.0-34.0) pg MCHC 32.9 (32.0-36.0) g/dL RDW Std Deviation 42.3 (36.4-46.3) fL RDW Coeff of Trice 12.7 (11.5-14.5) % Plt Count 254 (130-400) K/uL MPV 10.8 (9.4-12.4) fL Immature Gran % (Auto) 0.3 % Neut % (Auto) 71.4 % Lymph % (Auto) 16.6 % [place] % (Auto) 9.3 % Eos % (Auto) 1.9 % Baso % (Auto) 0.5 % Neut # (Auto) 12.53 H (1.40-6.50) K/uL Lymph # (Auto) 2.91 (1.20-3.40) K/uL [place] # (Auto) 1.64 H (0.11-0.59) K/uL Eos # (Auto) 0.34 (0.00-0.50) K/uL Baso # (Auto) 0.08 (0.00-0.20) K/uL Immature Gran # (Auto) 0.06 (0.01-0.20) K/uL POC Sodium 136 (135-144) mmol/L POC Potassium 4.1 (3.3-5.0) mmol/L POC Chloride 98 L (101-112) mmol/L POC Total CO2 26 (24-31) mmol/L POC Anion Gap 17.0 (16-25) mmol/L POC BUN 8 (7-18) mg/dl POC Creatinine 1.2 (0.6-1.3) mg/dl POC Glucose (other) 117 H (70-99) mg/dl Lactate 1.0 (0.4-2.0) mmol/L POC Ioniz Calcium Lukasz 1.16 (1.12-1.32) mmol/l Magnesium 1.8 (1.7-2.4) mg/dl Procalcitonin < 0.05 (0-0.5) ng/ml Administered Medications Discontinued Medications Aspirin (Aspirin 81 Mg Ectab) 81 mg PO DAILY BENNY Stop: 05/23/23 08:59 Last Admin: 04/24/23 07:20 Dose: 81 mg Documented By: Admin: 04/23/23 08:06 Dose: 81 mg Documented By: RYAN Enoxaparin Sodium (Enoxaparin Inj 40 Mg/0.4 Ml Syr) 40 mg SQ Q24H BENNY Stop: 05/23/23 08:59 Last Admin: 04/24/23 07:23 Dose: Not Given Documented By: Admin: 04/23/23 09:01 Dose: Not Given Documented By: RYAN Sodium Chloride (Nss) 1,000 mls @ 999 mls/hr IV .Q1H1M BENNY Stop: 04/22/23 23:30 Last Infusion: 04/22/23 23:58 Dose: Infused Documented By: Admin: 04/22/23 22:43 Dose: 999 mls/hr Documented By: KYLER Piperacillin Sod/Tazobactam Sod (Zosyn) 4.5 gm in 100 mls @ 200 mls/hr IV NOW ONE Stop: 04/22/23 22:51 Last Infusion: 04/23/23 00:28 Dose: Infused Documented By: Admin: 04/22/23 23:49 Dose: 200 mls/hr Documented By: JONO Vancomycin HCl 1,750 mg/ (Sodium Chloride) 535 mls @ 200 mls/hr IV NOW ONE Stop: 04/23/23 01:02 Last Infusion: 04/23/23 02:42 Dose: Infused Documented By: Admin: 04/22/23 23:49 Dose: 200 mls/hr Documented By: JONO Sodium Chloride (Nss) 1,000 mls @ 100 mls/hr IV .Q10H BENNY Stop: 05/23/23 02:35 Last Infusion: 04/23/23 18:43 Dose: Infused Documented By: Admin: 04/23/23 12:46 Dose: 100 mls/hr Documented By: Infusion: 04/23/23 11:53 Dose: Infused Documented By: Admin: 04/23/23 03:06 Dose: 100 mls/hr Documented By: MIRIAM Piperacillin Sod/Tazobactam (Sod 4.5 gm/ Dextrose) 100 mls @ 25 mls/hr IV Q8H BENNY; Protocol Stop: 04/30/23 05:59 Last Infusion: 04/24/23 08:59 Dose: Infused Documented By: Admin: 04/24/23 05:07 Dose: 25 mls/hr Documented By: Infusion: 04/24/23 02:34 Dose: Infused Documented By: Admin: 04/23/23 22:33 Dose: 25 mls/hr Documented By: Infusion: 04/23/23 18:42 Dose: Infused Documented By: Admin: 04/23/23 14:26 Dose: 25 mls/hr Documented By: Infusion: 04/23/23 09:10 Dose: Infused Documented By: Admin: 04/23/23 05:03 Dose: 25 mls/hr Documented By: MIRIAM Vancomycin HCl 1,000 mg/ (Sodium Chloride) 270 mls @ 200 mls/hr IV Q12H BENNY Stop: 04/30/23 09:59 Last Infusion: 04/24/23 10:16 Dose: Infused Documented By: Admin: 04/24/23 08:59 Dose: 200 mls/hr Documented By: Infusion: 04/23/23 22:33 Dose: Infused Documented By: Admin: 04/23/23 21:05 Dose: 200 mls/hr Documented By: Infusion: 04/23/23 11:53 Dose: Infused Documented By: Admin: 04/23/23 09:43 Dose: 200 mls/hr Documented By: RYAN Ioversol (Optiray 320 100ml) 91 ml IV ONCE ONE Stop: 04/22/23 20:41 Last Admin: 04/22/23 20:41 Dose: 91 ml Documented By: MÓNICA Lidocaine HCl (Xylocaine 1%/Sod Bicarb 20 Ml Vial) Confirm Administered Dose 1 ml INFIL .STK-MED ONE Stop: 04/22/23 22:51 Last Admin: 04/22/23 23:57 Dose: 1 ml Documented By: [id number] Imaging Data Radiologist's Impression: Pelvis CT 04/22/23 18:42 Exam(s): CT PELVIS With Contrast IV Amt: 91 ml optiray 320 EXAM: CT Pelvis With Intravenous Contrast CLINICAL HISTORY: Reason for exam: INFECTED CYST IN LEFT GROIN/SCROTUM. TECHNIQUE: Axial computed tomography images of the pelvis with intravenous contrast. CTDI is 9.09 mGy and DLP is 320.96 mGy-cm. Automated exposure control was utilized for the study. A dose lowering technique was utilized adhering to the principles of ALARA. CONTRAST: Patient received 91 ml optiray 320 of IV contrast COMPARISON: No relevant prior studies available. FINDINGS: Bowel: Unremarkable. No obstruction. No mucosal thickening. Appendix: No findings to suggest acute appendicitis. Intraperitoneal space: Unremarkable. No free air. No significant fluid collection. Bladder: Unremarkable. No mass. Reproductive: LEFT scrotal abscess, measures 4.2 x 2.1 cm and is located immediately deep to the skin surface. Urology evaluation recommended. Bones/joints: No acute fracture. No dislocation. Soft tissues: See above. Vasculature: Unremarkable. No lower abdominal aortic aneurysm. Lymph nodes: Unremarkable. No enlarged lymph nodes. Other findings: The need for testicular ultrasound should be determined clinically. IMPRESSION: LEFT scrotal abscess, measures 4.2 x 2.1 cm and is located immediately deep to the skin surface. Urology evaluation recommended. Electronically signed by: Moses Moreno MD 04/22/23 21:35 PM Discharge Plan Visit Data Chief Complaint: Skin Problem Stated Complaint: INFECTED CYST IN GROIN AREA ED Provider: Taye Rios Discharge Problem: Scrotal abscess Patient Disposition: Admitted As Inpatient Discharge Instructions Interventions: ED Discharge Assessment Last Done: 04/23/23 02:16
[2023-04-22] MEDS ORDERED: PIPERACILLIN/TAZOBACTAM 4.5 GM/100 ML BAG IV ONE (22:22)
[2023-04-22] MEDS ORDERED: VANCOMYCIN HCL 1,750 MG in SODIUM CHLORIDE 0.9% 500 ML IV ONE (22:22)
[2023-04-22] MEDS ORDERED: VANCOMYCIN CONSULT ACTIVE PRN (22:22)
[2023-04-22] MEDS ORDERED: SODIUM CHLORIDE 0.9% 1,000 ML IV SCH (22:30)
--- NOTE | 2023-04-22 22:40 | Urology Consultation ---
Date of Consultation April 22, 2023 Assessment & Plan (1) Scrotal abscess: Plan I discussed with the treating emergency room physician. The patient is going to be admitted on the hospitalist service. From a urologic perspective we plan the following: Due to the abscess noted in the patient's CT scan I feel the patient would benefit from an incision and drainage of this scrotal abscess. I discussed case with my attending physician, Dr. Juarez and we will plan on performing an incision and drainage of this abscess. I did discuss with the patient that we could potentially do this at the bedside under local anesthesia and the patient is agreeable to this. I discussed with the patient the rationale and benefits of doing this procedure which include resolving his infection and improving his pain. I did discuss the patient's that there are risks involved with the procedure which include but are not limited to bleeding, continued infection, injury to the testicles, scrotum, or other adjacent anatomical structures, and the potential for the requirement of additional surgical procedures. Alternatives to this procedure include observation with antibiotics. The risks of not having the procedure include continued pain/infection/sepsis. Patient expresses understanding and wishes to proceed and informed consent was obtained. Please see Dr. Juarez's procedure note for a detailed description of the incision and drainage procedure The patient has received antibiotics in form of Zosyn and vancomycin which should continue Serial labs to be followed Additional recommendations were forthcoming based on findings at time of incision and drainage and his clinical course as unfolds Supervising Physician Co-Signing Physician Notes Discussed the patient with CANDICE and agree with the note above. Procedure note is listed below. Informed consent was obtained. The patient was prepped and draped in a sterile fashion. The area was anesthetized with 8 cc of 1% lidocaine plain. Using a 15 blade, I made a 1 cm stab incision over the area that was already draining in the left hemiscrotum. Culture was sent to the lab. This area was further probed with an instrument and more purulent discharge was removed. Any loculations were broken up. Once the wound had been drained, this was packed with quarter inch gauze. Hemostasis was appropriate. Patient tolerated the procedure well. Recommend admission for antibiotics until we get culture data back and can set up wound care at home. History of Present Illness Reason for Consultation: Scrotal abscess History of Present Illness This a 53-year-old male who presented to the emergency department secondary to scrotal pain. The patient says that he has a "cyst" on his scrotum that has been present for several years. He notes that. At times throughout the year the cyst will swell and drained some clear liquid and usually gets better on its own. He notes over the past 3 days that the left side of his scrotum has become markedly more swollen and is draining a white puslike material with some bloody drainage as well. Patient says that he has had a temperature of approximately 100.2. He does report some shakes and chills. He reports some intermittent dysuria but denies any hematuria. He denies any difficulty with bowel movements. He notes he is not diabetic. His most recent oral intake was approximately noon at which time he had solid food and he has drank some tea at approximately 4:00 PM. Since arrival to the hospital patient has had labs and imaging which I independent reviewed. CT scan of the pelvis showed the patient had a left scrotal abscess measuring 4.2 x 2.1 cm located immediately deep to the skin surface. At the time of my interview the patient was resting comfortably in bed and he was in no distress Concerning past medical history the patient denies any medical problems Concerning past surgical history he has had a tonsillectomy Concerning social history he does smoke Concerning family history he reports of positive family history of coronary artery Allergies Allergy/AdvReac Type Severity Reaction Status Date / Time No Known Allergies Allergy Verified 04/22/23 22:45 Home Medications Medication Instructions Recorded Confirmed Type aspirin 81 mg tablet,delayed 81 mg PO DAILY 04/22/23 04/22/23 History release Patient History Medical History COVID-19 Pneumonia Social History Smoking Status: Current every day smoker Tobacco Type: Cigarettes Feels Safe at Home: Yes Review of Systems Constitutional: + fever and + chills Ear, Nose, Mouth, Throat: no ear pain Respiratory: no cough Cardiovascular: no chest pain Gastrointestinal: + abdominal pain; no nausea and no vomit ing Genitourinary: + as per Subjective / HPI Musculoskeletal: no back pain Integumentary: no rash Neurologic: no localized weakness Physical Exam Constitutional: WD/WN, vitals as above Eyes: no conjunctival abnormality ENMT: Ears: no hearing impairment and no external ear abnormality Mouth: no oropharynx abnormality Neck: trachea midline Respiratory: normal respiratory effort and + respiratory distress Gastrointestinal (Abdomen): Abdomen is soft and nonrigid. It is nondistended. There is no rebound tenderness or guarding. The patient did have some tenderness in the inguinal regions bilaterally Musculoskeletal: No calf tenderness Skin: Please see above for description of patient's scrotal Neurologic: moves all extremities Psychiatric: A+Ox3, euthymic affect Genitourinary: The patient's scrotum was examined. The left hemiscrotum was noted be markedly swollen and indurated. There is a small pinhole area that was draining some clear and white fluid. The area was slightly warm to touch and was painful to palpation. I do not appreciate any crepitus in the soft tissue Results & Data Vital Signs (Past 12 Hours) Vital Signs Temp Pulse Resp BP Pulse Ox O2 Del Method 04/22/23 18:41 37.4 C 99 H 18 142/76 H 98 Room Air PG Care Time/CCT Total # of Minutes Spent Total Time Spent with Patient: Total time spent is greater than 50% in coordination of care (as documented) at patient's floor/unit and/or counseling patient: Coding Level of Care Code 51022 OFFICE CONSULT LVL Diagnoses Scrotal abscess N49.2
[2023-04-22] MEDS ORDERED: XYLOCAINE 1%/SOD BICARB 20 ML VIAL INFIL ONE (22:50)
[2023-04-22 23:11] LABS: Basophils # (auto) 0.08 K/uL (0.00-0.20); Basophils % (auto) 0.5 %; Eosinophils # (auto) 0.34 K/uL (0.00-0.50); Eosinophils % (auto) 1.9 %; Hematocrit (blood only) 45.9 % (42.0-52.0); Hemoglobin 15.1 g/dl (14.0-18.0); Immature Granulocytes # (auto) 0.06 K/uL (0.01-0.20); Immature Granulocytes % (auto) 0.3 %; Lymphocytes # (auto) 2.91 K/uL (1.20-3.40); Lymphocytes % (auto) 16.6 %; Mean Corpuscular Hemoglobin 29.5 pg (25.0-34.0); Mean Corpuscular Hgb Conc 32.9 g/dL (32.0-36.0); Mean Corpuscular Volume 89.6 fL (80.0-100.0); Mean Platelet Volume 10.8 fL (9.4-12.4); Monocytes # (auto) 1.64 K/uL (0.11-0.59); Monocytes % (auto) 9.3 %; Neutrophils # (auto) 12.53 K/uL (1.40-6.50); Neutrophils % (auto) 71.4 %; Platelet Count 254 K/uL (130-400); RDW Coefficient of Variation 12.7 % (11.5-14.5); RDW Standard Deviation 42.3 fL (36.4-46.3); Red Blood Count 5.12 M/uL (4.70-6.10); White Blood Count 17.56 K/ul (4.8-10.8)
[2023-04-23] MEDS ORDERED: POLYETHYLENE (MIRALAX) 17 GM PACK PO PRN (02:36)
[2023-04-23] MEDS ORDERED: ACETAMINOPHEN 325 MG TAB PO PRN (02:36)
[2023-04-23] MEDS ORDERED: oxyCODONE HCL IR 5 MG TAB (IMMEDIATE RELEASE) PO PRN (02:36)
--- NOTE | 2023-04-23 02:51 | History & Physical Report ---
Date of Service April 23, 2023 Assessment & Plan (1) Scrotal abscess: Plan: 53-year-old male with no significant past medical history presents with left scrotal pain for last 3 days. Scrotal abscess S/p I&D by urology On IV Zosyn and Vanco IV fluids We will follow cultures Brain lesion On MRI scan on March 26, 2023 Which showed 2 to 3 cm lesion of the left temporal lobe mostly history of a focus of dysplasia or remote contusion rather than neoplasia Recommended repeat MRI in 2 to 3 months with perfusion imaging DVT prophylaxis Lovenox Disposition Medical floor Full code Admission and Anticipated Discharge Date Admission Date: April 23, 2023 History of Present Illness Chief Complaint: Left scrotal abscess Primary Care Provider: Reynold Levin MD 53-year-old male with no significant past medical history presents with left scrotal pain for last 3 days. Was having fevers. And today he noticed some drainage . Currently s/p I&D by urology in the ER. Resting comfortably. Denies any headache. No cough. No runny nose. No sore throat. No nausea. No chest pain or shortness of breath. Appetite is okay. No abdominal pain. Normal bowel and bladder movements. Past medical history none Past surgical history. Colonoscopy. Tonsillectomy. Excision of cyst on neck. Social history. . Works 1.25 packs daily for 30 years. No alcohol. No drug use. Family history. Father had prostate cancer, colon cancer, diabetes hypertension. Mother had diabetes. Stroke. Brother had heart disorder. Allergies Allergy/AdvReac Type Severity Reaction Status Date / Time No Known Allergies Allergy Verified 04/22/23 22:45 Home Medications Medication Instructions Recorded Confirmed Type aspirin 81 mg tablet,delayed 81 mg PO DAILY 04/22/23 04/22/23 History release Past Med/Surg History Medical History COVID-19 Pneumonia Social History Smoking Status: Heavy tobacco smoker Tobacco Type: Cigarettes Second Hand Exposure: No; Do You Dip or Chew Tobacco: No; Hx Alcohol Use: No Hx Substance Use: No Preferred Language: Occitan Communication Ability: Effective Salvage Clerk Required: No Beliefs That Will Affect Care: None Current Living Situation: Spouse Other Information That Helps Us Care for You: No Feels Safe at Home: Yes Safety Concerns: Feels Safe At This Time Assistive Devices: None Review of Systems Review of Systems: All systems reviewed & are unremarkable except as noted in HPI & below Physical Exam Physical Exam: General- not in distress Head- atraumatic Eyes- PERRL. ENT- oropharynx clear Neck- supple, no JVD. Lungs- clear to auscultation no wheezing or crackles. Heart- regular rhythm; no murmur, no gallop. Abdomen- normal bowel sounds, soft, nontender, no distension. Extremities- no pretibial edema, no erythema. Neuro- alert, oriented x 3; PERRL, EOMI; no facial palsy; no dysarthria; motor 5/5 bilaterally; no cogwheel rigidity; patellar DTRs +2/2; toes downgoing bilaterally; finger to nose intact bilaterally left scrotal abscess s/p i and D Results & Data Results & Data Vital Signs (Past 12 Hours) Vital Signs Temp Pulse Pulse Resp BP BP Pulse Ox 04/23/23 02:00 88 17 108/55 L 96 04/23/23 01:00 85 16 106/55 L 98 04/23/23 00:44 99 04/22/23 23:46 85 18 120/68 99 04/22/23 22:52 90 18 128/75 99 04/22/23 18:41 37.4 C 99 H 18 142/76 H 98 O2 Del Method 04/23/23 02:00 Room Air 04/23/23 01:00 Room Air 04/23/23 00:44 Room Air 04/22/23 23:46 Room Air 04/22/23 22:52 04/22/23 18:41 Room Air Diagnostic Findings Laboratory Results WBC 17.56 K/ul (4.8-10.8) H 04/22/23 19:25 RBC 5.12 M/uL (4.70-6.10) 04/22/23 19:25 Hgb 15.1 g/dl (14.0-18.0) 04/22/23 19:25 Hct 45.9 % (42.0-52.0) 04/22/23 19:25 MCV 89.6 fL (80.0-100.0) 04/22/23 19:25 MCH 29.5 pg (25.0-34.0) 04/22/23 19:25 MCHC 32.9 g/dL (32.0-36.0) 04/22/23 19:25 RDW Std Deviation 42.3 fL (36.4-46.3) 04/22/23 19:25 RDW Coeff of Trice 12.7 % (11.5-14.5) 04/22/23 19:25 Plt Count 254 K/uL (130-400) 04/22/23 19:25 MPV 10.8 fL (9.4-12.4) 04/22/23 19:25 Immature Gran % (Auto) 0.3 % 04/22/23 19:25 Neut % (Auto) 71.4 % 04/22/23 19:25 Lymph % (Auto) 16.6 % 04/22/23 19:25 [place] % (Auto) 9.3 % 04/22/23 19:25 Eos % (Auto) 1.9 % 04/22/23 19:25 Baso % (Auto) 0.5 % 04/22/23 19:25 Neut # (Auto) 12.53 K/uL (1.40-6.50) H 04/22/23 19:25 Lymph # (Auto) 2.91 K/uL (1.20-3.40) 04/22/23 19:25 [place] # (Auto) 1.64 K/uL (0.11-0.59) H 04/22/23 19:25 Eos # (Auto) 0.34 K/uL (0.00-0.50) 04/22/23 19:25 Baso # (Auto) 0.08 K/uL (0.00-0.20) 04/22/23 19:25 Immature Gran # (Auto) 0.06 K/uL (0.01-0.20) 04/22/23 19:25 Lactate 1.0 mmol/L (0.4-2.0) 04/22/23 23:36 Magnesium 1.8 mg/dl (1.7-2.4) 04/22/23 19:25 Procalcitonin < 0.05 ng/ml (0-0.5) 04/22/23 19:[address] 04/22/23 18:42 Exam(s): CT PELVIS With Contrast IV Amt: 91 ml optiray 320 EXAM: CT Pelvis With Intravenous Contrast CLINICAL HISTORY: Reason for exam: INFECTED CYST IN LEFT GROIN/SCROTUM. TECHNIQUE: Axial computed tomography images of the pelvis with intravenous contrast. CTDI is 9.09 mGy and DLP is 320.96 mGy-cm. Automated exposure control was utilized for the study. A dose lowering technique was utilized adhering to the principles of ALARA. CONTRAST: Patient received 91 ml optiray 320 of IV contrast COMPARISON: No relevant prior studies available. FINDINGS: Bowel: Unremarkable. No obstruction. No mucosal thickening. Appendix: No findings to suggest acute appendicitis. Intraperitoneal space: Unremarkable. No free air. No significant fluid collection. Bladder: Unremarkable. No mass. Reproductive: LEFT scrotal abscess, measures 4.2 x 2.1 cm and is located immediately deep to the skin surface. Urology evaluation recommended. Bones/joints: No acute fracture. No dislocation. Soft tissues: See above. Vasculature: Unremarkable. No lower abdominal aortic aneurysm. Lymph nodes: Unremarkable. No enlarged lymph nodes. Other findings: The need for testicular ultrasound should be determined clinically. IMPRESSION: LEFT scrotal abscess, measures 4.2 x 2.1 cm and is located immediately deep to the skin surface. Urology evaluation recommended. Electronically signed by: Moses Moreno MD 04/22/23 21:35 PM ECG Additional Comments: ECG. Normal sinus rhythm with rate of 87. No significant change was found. Code Status & VTE Plan VTE Prophylaxis Plan VTE Prophylaxis will be ordered: Yes
[2023-04-23] MEDS: SODIUM CHLORIDE 0.9% 1,000 ML IV SCH ×2 (03:06→12:46)
[2023-04-23] MEDS: PIPERACILLIN/TAZOBACTAM 4.5 GM in DEXTROSE 5% MINI-B 100 ML IV SCH ×3 (05:03→22:33)
[2023-04-23 07:19] LABS: Basophils # (auto) 0.09 K/uL (0.00-0.20); Basophils % (auto) 0.6 %; Eosinophils # (auto) 0.39 K/uL (0.00-0.50); Eosinophils % (auto) 2.5 %; Hematocrit (blood only) 42.1 % (42.0-52.0); Hemoglobin 14.5 g/dl (14.0-18.0); Immature Granulocytes # (auto) 0.05 K/uL (0.01-0.20); Immature Granulocytes % (auto) 0.3 %; Lymphocytes # (auto) 2.88 K/uL (1.20-3.40); Lymphocytes % (auto) 18.3 %; Mean Corpuscular Hemoglobin 29.7 pg (25.0-34.0); Mean Corpuscular Hgb Conc 34.4 g/dL (32.0-36.0); Mean Corpuscular Volume 86.3 fL (80.0-100.0); Monocytes # (auto) 1.83 K/uL (0.11-0.59); Monocytes % (auto) 11.6 %; Neutrophils # (auto) 10.54 K/uL (1.40-6.50); Neutrophils % (auto) 66.7 %; Platelet Count 246 K/uL (130-400); RDW Coefficient of Variation 12.8 % (11.5-14.5); RDW Standard Deviation 40.3 fL (36.4-46.3); Red Blood Count 4.88 M/uL (4.70-6.10); White Blood Count 15.78 K/ul (4.8-10.8)
[2023-04-23 07:35] LABS: BUN Creatinine Ratio 7.5 (10-20); Creatinine Clr Calc Pharmacy 76.2 ml/min; Est GFR (African American) 91.1 ml/min; Est GFR (Non-African American) 78.6 ml/min; Magnesium 1.7 mg/dl (1.7-2.4); Potassium 3.8 mmol/L (3.5-5.1)
[2023-04-23 07:37] LABS: Estimated Average Glucose 128 mg/dl; Hemoglobin A1C 6.1 % (4.5-5.6)
[2023-04-23] MEDS: ASPIRIN 81 MG ECTAB PO SCH (08:06)
--- NOTE | 2023-04-23 08:45 | Electrocardiogram Report ---
Test Reason : Blood Pressure : / mmHG Vent. Rate : 087 BPM Atrial Rate : 087 BPM P-R Int : 140 ms QRS Dur : 084 ms QT Int : 342 ms P-R-T Axes : 075 066 062 degrees QTc Int : 411 ms Normal sinus rhythm Normal ECG When compared with ECG of 29-MAR-2021 19:03, No significant change was found Confirmed by Reynold Avitia ([id number]) on 04/23/2023 8:44:49 AM Referred By: REFERRED SELF Confirmed By:Reynold Avitia
[2023-04-23] MEDS: ENOXAPARIN INJ 40 MG/0.4 ML SYR SQ SCH (09:01)
[2023-04-23] MEDS: VANCOMYCIN HCL 1,000 MG in SODIUM CHLORIDE 0.9% 250 ML IV SCH ×2 (09:43→21:05)
--- NOTE | 2023-04-23 11:36 | Pharmacy Report ---
Pharmacy PK ABX Note - Date of Service April 23, 2023 - Assessment and Plan Assessment * Mr Starks is a 53 year old M receiving vanc/Zosyn for treatment of scrotal abscess, s/p I&D. * Pertinent microbiologic data includes: Blood cx pending, scrotal cx pending Plan Vancomycin * Loading dose: 1750 mg IV x 1 * Maintenance dose: 1000 mg IV every 12 hours * Regimen is predicted to achieve target AUC/XU of 400-600 mg/L.hr * Will evaluate vanc level in 1-2 days if pt remains on therapy. Pharmacy will continue to follow and will adjust dose/frequency as necessary. Thank you. Pharmacy has transitioned to AUC monitoring for vancomycin. AUC/XU is the preferred PK/PD target and is associated with decreased risk of nephrotoxicity compared to traditional trough targets.
--- NOTE | 2023-04-23 15:18 | Hospitalist Progress Note ---
Date of Service April 23, 2023 Assessment & Plan (1) Scrotal abscess: Plan: 53-year-old male with no significant past medical history presents with left scrotal pain for last 3 days [employer]. He is being managed for the following: Scrotal abscess x left S/p I&D by urology 03/22 On IV Zosyn and Vanco, await operative culture Patient afebrile, reports feeling better, follow cultures. Brain lesion On MRI scan on March 26, 2023 Which showed 2 to 3 cm lesion of the left temporal lobe mostly history of a focus of dysplasia or remote contusion rather than neoplasia Recommended repeat MRI in 2 to 3 months with perfusion imaging. Patient is aware. Prediabetes: A1c of 6.1. Patient notified of the finding/counseled regarding lifestyle changes. Patient advised to follow-up with PCP office/repeat A1c in 3 months. He voiced understanding. DVT prophylaxis: Lovenox Disposition: Medical floor Full code Patient insisting on going home, discussion held regarding need for IV antibiotic for now and waiting for culture and sensitivity to finalize. Finally he is agreeable to stay today, hoping we have more information on culture and sensitivity by tomorrow. Admission and Anticipated Discharge Date Admission Date: April 23, 2023 Subjective Patient was seen and examined at bedside. Patient was lying in bed, on room air, NAD, reports feeling better, reports eating okay and moving bowels okay, denies any febrile illness/chest pain/sore throat/cough. Physical Exam Physical Exam: GENERAL: Alert and oriented x3. NAD, on RA. HEENT: No pallor, no icterus. Pupils equal, round and reactive to light. Oral mucosa moist. NECK: No JVD, no neck masses. HEART: S1 and S2 heard. Regular rate and rhythm. No murmur, no gallop. RESPIRATORY SYSTEM: Normal AP diameter. No accessory muscle use. No wheezing, no crackles. ABDOMEN: Soft, bowel sounds present, nontender, no distention. CENTRAL NERVOUS SYSTEM: No facial droop. Speech is clear. Obeys simple commands. Moves extremities. EXTREMITIES: No edema, no erythema seen. : Left scrotal swelling/edema/erythema noted. Results & Data Results & Data Vital Signs (Past 12 Hours) Vital Signs Temp Pulse Resp BP Pulse Ox O2 Del Method 04/23/23 07:18 36.6 C 73 18 109/65 98 Room Air
--- NOTE | 2023-04-23 16:08 | Urology Progress Note ---
Date of Service April 23, 2023 Assessment & Plan (1) Scrotal abscess: Plan: Overall he is doing well s/p incision and drainage of scrotal abscess. Should have adequate source control with the wound packing in place. The packing can gradually be removed, approximately 1 inch per day. Would recommend following wound cultures, narrowing coverage as data becomes available. Once culture data is available, would recommend approximately 7 to 10 days of antibiotics. Urology will coordinate outpatient follow-up. Admission and Anticipated Discharge Date Admission Date: April 23, 2023 Subjective Feeling much better than yesterday No fevers or chills Scrotum swelling has gone down Leukocytosis trending down (WBC 15.78) Wound cultures pending, remains on vancomycin and Zosyn Physical Exam Physical Exam: Well-appearing, NAD Genitourinary: Penis with orthotopic meatus, no discharge or drainage. Right hemiscrotum is largely normal and nontender to palpation. Left hemiscrotum with some persistent induration on the posterior aspect. No fluctuant areas. Mildly swollen and mildly tender to palpation. There is a 1 cm "stab" incision with a wick from wound packing. Results & Data Vital Signs (Past 12 Hours) Vital Signs Temp Pulse Resp BP Pulse Ox O2 Del Method 04/23/23 07:18 36.6 C 73 18 109/65 98 Room Air PG Care Time/CCT Total # of Minutes Spent Total Time Spent with Patient: Total time spent is greater than 50% in coordination of care (as documented) at patient's floor/unit and/or counseling patient: Coding Level of Care Code 62320 SUB INP/OBS CARE 1/25MIN Diagnoses Scrotal abscess N49.2
[2023-04-24] MEDS: PIPERACILLIN/TAZOBACTAM 4.5 GM in DEXTROSE 5% MINI-B 100 ML IV SCH (05:07)
[2023-04-24] MEDS: ASPIRIN 81 MG ECTAB PO SCH (07:20)
[2023-04-24] MEDS: ENOXAPARIN INJ 40 MG/0.4 ML SYR SQ SCH (07:23)
[2023-04-24 08:04] LABS: Hematocrit (blood only) 43.3 % (42.0-52.0); Hemoglobin 14.2 g/dl (14.0-18.0); Mean Corpuscular Hemoglobin 29.5 pg (25.0-34.0); Mean Corpuscular Hgb Conc 32.8 g/dL (32.0-36.0); Mean Corpuscular Volume 89.8 fL (80.0-100.0); Mean Platelet Volume 10.2 fL (9.4-12.4); Platelet Count 226 K/uL (130-400); RDW Coefficient of Variation 12.6 % (11.5-14.5); RDW Standard Deviation 41.7 fL (36.4-46.3); Red Blood Count 4.82 M/uL (4.70-6.10); White Blood Count 9.19 K/ul (4.8-10.8)
[2023-04-24 08:24] LABS: BUN Creatinine Ratio 5.8 (10-20); Calcium 9.1 mg/dl (8.6-10.3); Creatinine Clr Calc Pharmacy 67.3 ml/min; Est GFR (African American) 78.4 ml/min; Est GFR (Non-African American) 67.7 ml/min; Magnesium 1.8 mg/dl (1.7-2.4); Potassium 3.8 mmol/L (3.5-5.1)
[2023-04-24] MEDS: VANCOMYCIN HCL 1,000 MG in SODIUM CHLORIDE 0.9% 250 ML IV SCH (08:59)
--- NOTE | 2023-04-24 12:07 | Discharge Summary ---
Date of Service April 24, 2023 Admission HPI Per Admitting Provider 53-year-old male with no significant past medical history presents with left scrotal pain for last 3 days. Was having fevers. And today he noticed some drainage . Currently s/p I&D by urology in the ER. Resting comfortably. Denies any headache. No cough. No runny nose. No sore throat. No nausea. No chest pain or shortness of breath. Appetite is okay. No abdominal pain. Normal bowel and bladder movements. Past medical history none Past surgical history. Colonoscopy. Tonsillectomy. Excision of cyst on neck. Social history. . Works 1.25 packs daily for 30 years. No alcohol. No drug use. Family history. Father had prostate cancer, colon cancer, diabetes hypertension. Mother had diabetes. Stroke. Brother had heart disorder. Admission Exam Per Admitting Provider General- not in distress Head- atraumatic Eyes- PERRL. ENT- oropharynx clear Neck- supple, no JVD. Lungs- clear to auscultation no wheezing or crackles. Heart- regular rhythm; no murmur, no gallop. Abdomen- normal bowel sounds, soft, nontender, no distension. Extremities- no pretibial edema, no erythema. Neuro- alert, oriented x 3; PERRL, EOMI; no facial palsy; no dysarthria; motor 5/5 bilaterally; no cogwheel rigidity; patellar DTRs +2/2; toes downgoing bilaterally; finger to nose intact bilaterally left scrotal abscess s/p i and D Principal Diagnosis Scrotal abscess x left Discharge Exam GENERAL: Alert and oriented x3. NAD, on RA. HEENT: No pallor, no icterus. Pupils equal, round and reactive to light. Oral mucosa moist. NECK: No JVD, no neck masses. HEART: S1 and S2 heard. Regular rate and rhythm. No murmur, no gallop. RESPIRATORY SYSTEM: Normal AP diameter. No accessory muscle use. No wheezing, no crackles. ABDOMEN: Soft, bowel sounds present, nontender, no distention. CENTRAL NERVOUS SYSTEM: No facial droop. Speech is clear. Obeys simple commands. Moves extremities. EXTREMITIES: No edema, no erythema seen. : Left scrotal swelling/edema/erythema - improving Discharge Data Allergies Allergy/AdvReac Type Severity Reaction Status Date / Time No Known Allergies Allergy Verified 04/22/23 22:45 Consultations 04/22/23 22:22 Consult Urology Stat 04/22/23 22:51 ED Decision to Admit Stat Ordered Studies 04/22/23 18:42 CT pelvis w/IV con only Stat Hospital Course (1) Scrotal abscess: 53-year-old male with no significant past medical history presents with left scrotal pain for last 3 days [employer]. He was managed for the following: Scrotal abscess x left S/p I&D by urology 03/22 On IV Zosyn and Vanco, await operative culture --> not yet finalized, patient insisted on going home today/understand the risks of infection not being treated appropriately including worsening of the infection/sepsis/shock/. Patient is being discharged on doxycycline based on preliminary result of staph species, he will need to follow-up with the PCP office in 3 to 5 days time upon discharge to discuss the final results on the test/any antibiotic modification needed. Patient has been made aware, he voiced understanding and was agreeable. Patient afebrile, reports feeling better, is hemodynamically stable. Brain lesion On MRI scan on March 26, 2023 Which showed 2 to 3 cm lesion of the left temporal lobe mostly history of a focus of dysplasia or remote contusion rather than neoplasia Recommended repeat MRI in 2 to 3 months with perfusion imaging. Patient is aware. Prediabetes: A1c of 6.1. Patient notified of the finding/counseled regarding lifestyle changes. Patient advised to follow-up with PCP office/repeat A1c in 3 months. He voiced understanding. DVT prophylaxis: Lovenox Disposition: Medical floor Full code Patient being discharged to home with following instruction at the point of discharge: Follow-up with your primary care physician within a week time and likely you will need labs CBC/CMP/magnesium/phosphorus. You were managed for scrotal abscess with I&D and you got IV antibiotic while in hospital, your culture/sensitivity results has not been finalized but you insisted on going home, you are being discharged on antibiotic to cover for possible organism, as discussed at the bedside you will need to set up visit with your primary care office in 3 to 5 days upon discharge to discuss about the final results on your scrotal wound culture and then determine the final antibiotic therapy/duration. If your erythema/swelling/pain is increasing, you need to either report to your PCP office or to emergency immediately. You have been informed that your A1c is 6.1, meaning prediabetes. You have been counseled regarding lifestyle changes/smoking cessation to help with improvement in your A1c level. You will need repeat A1c level in 3 months time, coordinate with your PCP office. Regarding your abnormal brain MRI from March 2023, you will need repeat MRI in 2 to 3 months with perfusion imaging. As discussed at the bedside, you have already been made aware about this in the past. Please make sure that you are able to get your medications today by calling your pharmacy before you leave the hospital so that your treatment continuity is not broken. Home Health Attestation I certify that this patient is under my care and that I, or a physicians clinical data assistant working with me, had a face to-face encounter that meets the home health [id number] encounter requirements with this patient. The encounter with the patient was in whole, or in part, for the following me dical condition, which is the primary reason for home health care (list medical condition): I certify that, based on my findings, the following services are medically neces k[facility] home health services: My clinical findings support the need for the above services because: Further, I certify that my clinical findings support that this patient is homebound (i.e. absences from home require considerable and taxing effort and are for medical reasons or alevism services or infrequently or of short duration when for other reasons) because: Certification for Home Health Services: Based on the above findings, I certify that this patient is confined to the home and needs intermittent jail care, physical therapy and/or speech therapy or continues to need occupational therapy. The patient is under my care, and I have initiated the establishment of the plan of care. This patient will be followed by a physician who will periodically review the plan of care. Total Time Total Time Spent Total Time Spent (In Minutes): 45 Discharge Plan Discharge Items Patient Disposition: Home - Self-Care Reason For Visit: SCROTAL ABSCESS Discharge Diagnosis: Scrotal abscess x left Activity: Resume your previous activity Non-emergency contact: Primary Care Provider Call non-emergency contact if: you have any medication questions, your symptoms worsen and your temperature is above 101 Follow-up/Referrals: Reynold Levin MD [Primary Care Provider] - Diet: Heart Healthy Addtl Attending Provider Instructions: Follow-up with your primary care physician within a week time and likely you will need labs CBC/CMP/magnesium/phosphorus. You were managed for scrotal abscess with I&D and you got IV antibiotic while in hospital, your culture/sensitivity results has not been finalized but you insisted on going home, you are being discharged on antibiotic to cover for possible organism, as discussed at the bedside you will need to set up visit with your primary care office in 3 to 5 days upon discharge to discuss about the final results on your scrotal wound culture and then determine the final antibiotic therapy/duration. If your erythema/swelling/pain is increasing, you need to either report to your PCP office or to emergency immediately. You have been informed that your A1c is 6.1, meaning prediabetes. You have been counseled regarding lifestyle changes/smoking cessation to help with improvement in your A1c level. You will need repeat A1c level in 3 months time, coordinate with your PCP office. Regarding your abnormal brain MRI from March 2023, you will need repeat MRI in 2 to 3 months with perfusion imaging. As discussed at the bedside, you have already been made aware about this in the past. Please make sure that you are able to get your medications today by calling your pharmacy before you leave the hospital so that your treatment continuity is not broken. Pending Studies at Discharge: Yes Stand-Alone Forms: [facility], Smoking Cessation Medications and DC Order Prescriptions: New doxycycline hyclate 100 mg tablet 100 mg PO BID 8 Days Qty: 16 0RF Continued aspirin 81 mg Tablet,Delayed Release (Dr/Ec) 81 mg PO DAILY Discharge Orders: Discharge Order (Routine); Ordered 04/24/23 Ordered By: Sagrario Chung/Other Patient Handouts: Prediabetes, 5 Steps for Eating Healthier Admission Data Admit Date/Time: 04/23/23 01:31 Attending Provider: Sagrario Phillip Admit Provider: Osvaldo Jeffers Primary Care Provider: Reynold Levin Other Providers: Anival Juarez; Osvaldo Jeffers
[2023-04-24 13:13] LABS: iSTAT Creatinine 1.2 mg/dl (0.6-1.3); iSTAT Ionized Calcium 1.16 mmol/l (1.12-1.32); iSTAT Potassium 4.1 mmol/L (3.3-5.0)
--- OUTSIDE RECORDS SUMMARY | 2023-04-24 23:30 | External Medical Summary | Summary of Care ---
Author Name Unknown Organization [facility] Address [address] [place] [address] Phone [phone] Care Team Providers Care Surgical Consultant Name Role Phone Jostin Deleoninic Primary Care Provider Reason for Referral * Precert (Within 10 days (routine)) - Pending Review Specialty Diagnoses / Procedures Referred By Giovanna stein Referred To Contact Radiology Diagnoses Unilateral occipital headache Transient weakness of left lower extremity Weakness of left upper extremity Procedures CTA HEAD/CTA NECK Lucero Aguayo MD [address] [place] [address] Referral ID Status Reason Start Date Expiration Date Visits Requested Visits Authorized [id number] Pending Review Precert 02/19/2023 999 999 * Evaluate & Treat - Unlimited Visits (Within 10 days (routine)) - Pending Review Specialty Diagnoses / Procedures Referred By Giovanna stein Referred To Contact Neurology Diagnoses Unilateral occipital headache Transient weakness of left lower extremity Weakness of left upper extremity Lucero Aguayo MD [address] [place] [address] Referral ID Status Reason Start Date Expiration Date Visits Requested Visits Authorized [id number] Pending Review Specialty Services Required 02/19/2023 999 999 Question Answer Referral Priority Within 10 days (routine) [facility] NEUROLOGY REFERRAL QUESTIONS Headache - int weakness left Has the patient tried 1 abortive and 1 preventative medication? No * Precert (Within 10 days (routine)) - Pending Review Specialty Diagnoses / Procedures Referred By Contwliiam t Referred To Contact Radiology Diagnoses Unilateral occipital headache Transient weakness of left lower extremity Weakness of left upper extremity Procedures CT HEAD/BRAIN WO CONTRAST Lucero Aguayo MD [address] [place] [address] Referral ID Status Reason Start Date Expiration Date V isits Requested Visits Authorized [id number] Pending Review 02/19/2023 999 999 Reason for Visit * Reason Comments Acute The pt stated he has numbness and weakness and his L arm and L leg with headaches on L side for approx 2 months. Encounter Details Date Type Department Care Team Description 02/19/2023 Office Visit General Internal Medicine [facility] [address] [facility] [place] [address] Lucero Aguayo MD [address] [place] [address] Unilateral occipital headache*; Transient weakness of left lower extremity; Weakness of left upper extremity; Tobacco use disorder; Excessive caffeine intake; Need for pneumococcal vaccination Allergies Active Allergy Reactions Severity Noted Date Comments Sulfa Antibiotics Rash Medium 07/29/2019 SOB documented as of this encounter (statuses as of 02/19/2023) Medications Medication Sig Dispensed Refills Start Date End Date Status aspirin enteric coated 81 MG TBEC Take 1 Tablet by mouth in the morning. 100 Tab 3 06/03/2017 Active Azithromycin 250 MG Oral Tablet (Zithromax Z-Cuco)Indications: Cough Take two tablets by mouth on first day, then 1 tablet daily until gone 6 Tab 0 03/28/2021 02/19/2023 Discontinued documented as of this encounter (statuses as of 02/19/2023) Active Problems Problem Noted Date Tobacco use disorder 10/17/2003 documented as of this encounter (statuses as of 02/19/2023) Resolved Problems Problem Noted Date Resolved Date ADVANCE DIRECTIVE INFORMATION 07/20/2006 Overview: No, Advance Directive brochure given to patient at prior appointment. Headache 10/17/2003 06/03/2017 Overview: ICD-10 update of inactive term Malaise and fatigue 10/17/2003 06/03/2017 Reflux esophagitis 06/03/2017 documented as of this encounter (statuses as of 02/19/2023) Immunizations Name Administration Dates Next Due Pneumococcal Conjugate Vaccine, 20-valent (Prevn ar20) 02/19/2023 Pneumococcal Polysaccharide PPV23 (Pneumovax) TDAP (age 10 and older)(Boostrix) 11/17/2017 documented as of this encounter Social History Tobacco Use Types Packs/Day Years Used Date Smoking Tobacco: Every Day Cigarettes 1.3 30 Smokeless Tobacco: Never Tobacco Cessation:Ready to Q uit: Not Asked; Counseling Given: Not Answered Alcohol Use Standard Drinks/Week Comments No 0 (1 standard drink = 0.6 oz pur e alcohol) Food Insecurity Answer Date Recorded Within the past 12 months, y ou worried that your food would run out before you got money to buy more. Never true 10/19/2020 Within the past 12 months, t he food you bought just didn't last and you didn't have money to get more. Never true 10/19/2020 Sex Assigned at Date Recorded Not on file Job Start Date Occupation Industry Not on file Not on file Not on file documented as of this encounter Last Filed Vital Signs Vital Sign Reading Time Taken Comments Blood Pressure 120/78 02/19/2023 8:52 AM EDT Pulse 71 02/19/2023 8:52 AM EDT Temperature 35.7 C (96.2 F) 02/19/2023 8:52 AM ED T Respiratory Rate - - Oxygen Saturation 97% 02/19/2023 8:52 AM EDT Inhaled Oxygen Concentration - - Weight 72.2 kg (159 lb 3.2 oz) 02/19/2023 8:52 A M EDT Height - - Body Mass Index 24.75 10/19/2020 3:11 PM EDT documented in this encounter Progress Notes * Zander Webber LPN - 02/19/2023 9:41 AM EDT Pre-Administration Time Out Procedure Performed: Yes Patient Identified (Ask Name/Date of ): Yes Does the patient have a fever greater than 101 degrees today? No Patient allergic to latex? No Has the patient ever fainted after receiving an injection? No VFC Stock: No Immunization(s) verified: Yes, Immunization Name: Prevnar 20 (PCV20), VIS Sheet(s) given: Yes Verified Side and Site: Yes Verified Shot(s) with Parent(s)/Patient: Yes * Lucero Aguayo MD - 02/19/2023 9:14 AM EDT SUBJECTIVE: Hiren Starks is a 53 year old male. Chief Complaint Patient presents with Acute The pt stated he has numbness and weakness and his L arm and L leg with headaches on L side for approx 2 months. HPI: Patient presents today for acute appointment accompanied by his .. States in the last 2 months he I had intermittent episodes of headache on the left back of the head, followed by transient weakness and numbness of the left upper extremity and then the left lower extremity . Usually last for about 2 minutes but 1 episode recently was 5 minutes about 3 days ago. States usually may get it once every 2 weeks mainly of the left upper extremity and twice of the left lower extremity. It is not a severe headache. No visual aura or visual symptoms. No difficulty with speech or swallowing. Tobacco use disorder 1-1.5 packs a day since age 14 Denies alcohol or drug use Drinks coffee 2 pots per day and ice tea large bottle daily Last lipids in 2018-low HDL 32, LDL was 74 Patient Active Problem List Diagnosis Code Tobacco use disorder F17.200 Current Outpatient Medications Medication Sig Dispense Refill aspirin enteric coated 81 MG TBEC Take 1 Tablet by mouth in the morning. 100 Tab 3 No current facility-administered medications for this visit. Review of patient's allergies indicates: Allergen Reactions Sulfa Antibiotics Rash SOB Refuses flu vaccine today, willing to get Prevnar 20 Immunization History Administered Date(s) Administered Pneumococcal Conjugate Vaccine, 20-valent ([id number]) 02/19/2023 Pneumococcal Polysaccharide PPV23 (Pneumovax) 07/12/2019 TDAP (age 10 and older)(Boostrix) 11/17/2017 OBJECTIVE: BP 120/78 | Pulse 71 | Temp 35.7 C (96.2 F) | Wt 72.2 kg (159 lb 3.2 oz) | SpO2 97% | BMI 24.75kg/m | BSA 1.85 m PHYSICAL EXAM: General: alert, healthy, no distress, well nourished and well developed Head: Normocephalic, atraumatic Eye Exam: PERRLA, EOMI, Conjunctiva are pink and non-injected, sclera clear Neck: supple, no bruits Lymph: No palpable lymphadenopathy. Heart: Regular rhythm and rate, no murmurs and no gallops Lungs: lungs clear to auscultation Extremities: no edema, no clubbing, no cyanosis. Neuro Exam: alert & oriented x 3 with fluent speech, no focal motor/sensory deficits, gait normal Skin: skin color, texture, turgor are normal, no rashes ASSESSMENT/PLAN: Unilateral occipital headache (Primary) - CT HEAD/BRAIN WO CONTRAST; Future; Expected date: 02/19/2023 - NEUROLOGY REFERRAL OP - CREATININE; Future; Expected date: 02/19/2023 - CTA HEAD/CTA NECK; Future; Expected date: 02/19/2023 Transient weakness of left lower extremity - CT HEAD/BRAIN WO CONTRAST; Future; Expected date: 02/19/2023 - NEUROLOGY REFERRAL OP - CREATININE; Future; Expected date: 02/19/2023 - CTA HEAD/CTA NECK; Future; Expected date: 02/19/2023 Weakness of left upper extremity - CT HEAD/BRAIN WO CONTRAST; Future; Expected date: 02/19/2023 - NEUROLOGY REFERRAL OP - CREATININE; Future; Expected date: 02/19/2023 - CTA HEAD/CTA NECK; Future; Expected date: 02/19/2023 DD hemiplegic migraine Tobacco use disorder Advised smoking cessation. Excessive caffeine intake Dec caffeine gradually Need for pneumococcal vaccination - PNEUMOCOCCAL VACC, PCV20, IM ([id number]) Follow Up: Return if symptoms worsen or fail to improve, for Labs Today. | For: Labs Today | Check-out note: Shayla f/u and 40 min cpe with PCP/any provider--xle HM due (This note was completed using the dictation program Fluency Direct. As such, there may be misspellings, word substitutions, or other variations that should not change the essence of the clinical content of this encounter note. If there is need for further clarification, please direct questions to the provider listed above.) Patient and / caregiver verbalize understanding of above instructions and agrees with plan of care. Lucero Aguayo MD 02/19/2023 documented in this encounter Nursing Notes * Zander Webber LPN - 02/19/2023 8:52 AM EDT Chief Complaint Patient presents with Acute The pt stated he has numbness and weakness and his L arm and L leg with headaches on L side for approx 2 months. documented in this encounter Plan of Treatment Upcoming Encounters Date Type Specialty Care Team Description 02/20/2023 Imaging Radiology 03/09/2023 Office Visit Neurology Mayelin Oliveros MD [address] [place] [address] Scheduled Orders Name Type Priority Associated Diagnoses Orde r Schedule CT HEAD/BRAIN WO CONTRAST Medical Imaging Routine Unilateral occipital headache Transient weakness of left lower extremity Weakness of left upper extremity Expected: 02/19/2023, Expires: 03/21/2024 CTA HEAD/CTA NECK Medical Imaging Routine Unilateral occipital headache Transient weakness of left lower extremity Weakness of left upper extremity Expected: 02/19/2023, Expires: 03/21/2024 Scheduled Procedures Name Priority Associated Diagnoses Date/Ti sc COLONOSCOPY FLEXIBLE PROXIMAL DIAGNOSTIC Recall History of colon polyps Scheduled Referrals Name Type Priority Associated Diagnoses Orde r Schedule NEUROLOGY REFERRAL OP Referral Within 10 days (routine) Unilateral occipital headache Transient weakness of left lower extremity Weakness of left upper extremity Ordered: 02/19/2023 Health Maintenance Due Date Last Done Comments Hepatitis B (1 of 3 - 3-dose series) 1970 COVID-19 Vaccine (#1) 1970 HIV Screening 01/29/1983 Hepatitis C Screening 01/29/1986 Zoster Vaccines (1 of 2) 01/29/2018 Depression Screening 10/19/2021 10/19/2020, 03/02/20 18 COLONOSCOPY-EVERY 3 YRS AGES 18-100 08/08/2022 08/09/2019, 08/09/2019, 07/03/2017, Additional history exists Influenza Vaccine (FLU shot) (#1) 2023 03/02/2018 (Declined), 06/03/2017 (Declined) Lipid Panel 03/06/2023 03/06/2018 DTaP,Tdap,and Td Vaccines (2 - Td or Tdap) 11/18/2027 11/17/2017 LUNG CANCER SCREENING - USE SMARTSET [id number] Completed 09/10/2018, 02/24/2002 Pneumococcal Vaccine: Pediatrics (0 to 5 Years) and At-Risk Patients (6 to 64 Years) Completed 02/19/2023, 07/12/2019 GARDASIL-HPV IMMUNIZATION SERIES Aged Out No longer eligible based on patient's age to complete this topic MENINGOCOCCAL (MENACTRA/MENVEO) Aged Out No longer eligible based on patient's age to complete this topic documented as of this encounter Medical Devices Not on filedocumented as of this encounter Results * CREATININE (02/19/2023 10:00 AM EDT) Pathologist [facility] [place] Creatinine 1.2 0.6 - 1.2 mg/dL 02/19/2023 11:10 AM EDT [facility] Estimated Glomerular Filtration Rate 69 >=60 mL/min 02/19/2023 11:10 AM EDT [facility] Comment:eGFR is calculated b ased on the CKD-EPI 2020 equation Blood Venous blood specimen / Unknown Venipuncture / Unknown 02/19/2023 10:00 AM EDT 02/19/2023 10:00 AM EDT Lucero Aguayo MD LAB BLOOD ORDERABLES [facility] [place] [address] documented in this encounter Visit Diagnoses Diagnosis Unilateral occipital headache- Primary Headache Transient weakness of left lower extremity Weakness of left upper extremity Other musculoskeletal symptoms referable to limbs Tobacco use disorder Excessive caffeine intake Other specified personal history presenting hazards to health Need for pneumococcal vaccination Need for prophylactic vaccination against streptococcus pneumoniae (pneumococcus) documented in this encounter Care Teams Surgical Consultant Relationship Specialty Start Date End Date Hung Deleon DO [address] [place] [address] PCP - General Family Medicine 01/31/21 documented as of this encounter"
--- OUTSIDE RECORDS SUMMARY | 2023-04-24 23:30 | External Medical Summary ---
Author Name Unknown Address Unknown Organization K01:[facility] [address] [facility] [place] [address] Laboratory Report Ordering Provider Test Date Status ELIUD KEANE 03/09/2023 11:50:39 Final Observation Date Value Abnormality Reference (Units ) Status Triglyceride 03/09/2023 11:50:39 155 <=174 ( mg/dL) Final Triglyceride Reference Range s (mg/dL):
<150 Acceptable
150-174 Borderline high
175-499 High
>=500 Very high Cholesterol 03/09/2023 11:50:39 144 <200 (mg /dL) Final Total Cholesterol Reference Ranges (mg/dL):
<200 Desirable
200-239 Borderline high
>=240 High HDL 03/09/2023 11:50:39 37 Below low normal >39 (mg/dL) Final HDL Cholesterol Reference Ra nges (mg/dL):
>=60 High (Desirable)
<50 Low (Undesirable) For Females
<40 Low (Undesirable) For Males NON-HDL CHOLESTEROL 03/09/2023 11:50:39 107 <=159 (mg/dL) Final Non-HDL Cholesterol Referenc e Range (mg/dL):
<100 Target level for high risk ASCVD patient
<130 Optimal for general population
130-159 Near optimal for general population
160-189 Borderline High
190-219 High
>=220 Very High LDL, (calculated) 03/09/2023 11:50:39 76 <= 129 (mg/dL) Final LDL Cholesterol Reference Ra nges (mg/dL):
<70 Target level for high risk ASCVD patient
<100 Optimal for general population
100-129 Near optimal for general population
130-159 Borderline high
160-189 High
>=190 Very high Performing Location [facility] - [address] [facility] [address]
--- OUTSIDE RECORDS SUMMARY | 2023-04-24 23:30 | External Medical Summary | Summary of Care ---
Author Name Unknown Organization [facility] Address [address] [place] [address] Phone [phone] Care Team Providers Care Caustic Operator Name Role Phone Hung Deleon DO Primary Care Provider Reason for Visit * Reason Onset Date Comments Test Results 03/27/2023 Unexpected or In determinate Result Encounter Details Date Type Department Care Team Description 03/27/2023 Telephone Laboratory, [place] [address] [place] [address] Lucero Aguayo MD [address] [place] [address] Test Results (Unexpected or Indeterminate ... Allergies Active Allergy Reactions Severity Noted Date Comments Sulfa Antibiotics Rash Medium 07/29/2019 SOB documented as of this encounter (statuses as of 03/27/2023) Medications Medication Sig Dispensed Refills Start Date End Date Status aspirin enteric coated 81 MG TBEC Take 1 Tablet by mouth in the morning. 100 Tab 3 06/03/2017 Active Aspirin 81 MG Oral Tablet Chewable Take 1 Tablet by mouth in the morning. 0 03/09/2023 Active Rosuvastatin Calcium 10 MG Oral Tablet (Crestor)Indications: Dyslipidemia, goal LDL below 70,History of TIA (transient ischemic attack) Take 1 Tablet by mouth in the morning. 90 Tablet 1 03/10/2023 Active documented as of this encounter (statuses as of 03/27/2023) Active Problems Problem Noted Date Tobacco use disorder 10/17/2003 documented as of this encounter (statuses as of 03/27/2023) Resolved Problems Problem Noted Date Resolved Date ADVANCE DIRECTIVE INFORMATION 07/20/2006 Overview: No, Advance Directive brochure given to patient at prior appointment. Headache 10/17/2003 06/03/2017 Overview: ICD-10 update of inactive term Malaise and fatigue 10/17/2003 06/03/2017 Reflux esophagitis 06/03/2017 documented as of this encounter (statuses as of 03/27/2023) Immunizations Name Administration Dates Next Due Pneumococcal Conjugate Vaccine, 20-valent (Prevn ar20) 02/19/2023 Pneumococcal Polysaccharide PPV23 (Pneumovax) TDAP (age 10 and older)(Boostrix) 11/17/2017 documented as of this encounter Social History Tobacco Use Types Packs/Day Years Used Date Smoking Tobacco: Every Day Cigarettes 1.3 30 Smokeless Tobacco: Never Alcohol Use Standard Drinks/Week Comments No 0 [...] on file documented as of this encounter Miscellaneous Notes * Telephone Encounter - Beryl Ledesma CMA - 03/27/2023 4:11 PM EDT Patient aware and verbalized understanding, asking what to do for next steps and if this area will heal * Telephone Encounter - Lucero Aguayo MD - 03/27/2023 3:59 PM EDT MRI brain-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 -Routed to neurology for advice and follow up, defer next MRI order to neurology/ new PCP in Jun. * Telephone Encounter - Beryl Ledesma CMA - 03/27/2023 3:41 PM EDT Please advise what to tell patient * Telephone Encounter - TYREE Nieves - 03/27/2023 3:32 PM EDT Hello- The radiologist discovered an unexpected or indeterminate finding on Hiren Oneil Tereza ([id number]) and asks that you review the following report. Study Type: MRI BRAIN W WO CONTRAST Date of Study: 03/26/23 IMPRESSION 1. 2-3 cm lesion of the left temporal lobe anterior aspect with imaging features more suggestive ofa focus of dysplasia or remote contusion rather than neoplasia. A short interval follow-up contrast-enhanced brain exam is recommended in 2-3 months with perfusion imaging. Please respond to this encounter to acknowledge receipt of this message and take responsibility to ensure this report is reviewed. Thank you, TYREE Nieves Client Service Rep [facility] documented in this encounter Plan of Treatment Upcoming Encounters Date Type Specialty Care Team Description 05/15/2023 Cardiac Studies Cardiac Studies 06/17/2023 Laboratory Laboratory [facility], [facility] [address] [place] [address] 06/24/2023 Office Visit Family Medicine Reynold Levin MD [address] [place] [address] 07/20/2023 Office Visit Neurology Mayelin Oliveros MD [address] [facility] [place] [address] Scheduled Procedures Name Priority Associated Diagnoses Date/Ti me COLONOSCOPY FLEXIBLE PROXIMAL DIAGNOSTIC Recall History of colon polyps Health Maintenance Due Date Last Done Comments Hepatitis B (1 of 3 - 3-dose series) 1970 COVID-19 Vaccine (#1) 1970 HIV Screening 01/29/1983 Hepatitis C Screening 01/29/1986 Zoster Vaccines (1 of 2) 01/29/2018 Depression Screening 10/19/2021 10/19/2020, 03/02/20 18 COLONOSCOPY-EVERY 3 YRS AGES 18-100 08/08/2022 08/09/2019, 08/09/2019, 07/03/2017, Additional history exists Influenza Vaccine (FLU shot) (#1) 2023 03/02/2018 (Declined), 06/03/2017 (Declined) DTaP,Tdap,and Td Vaccines (2 - Td or Tdap) 11/18/2027 11/17/2017 Lipid Panel 03/09/2028 03/09/2023, 03/06/2018 LUNG CANCER SCREENING - USE SMARTSET [id number] Completed 09/10/2018, 02/24/2002 Pneumococcal Vaccine: Pediatrics (0 [...] Not on filedocumented as of this encounter Care Teams Caustic Operator Relationship Specialty Start Date End Date Hung Deleon DO [address] [place] [address] PCP - General Family Medicine 01/31/21 documented as of this encounter
--- OUTSIDE RECORDS SUMMARY | 2023-04-24 23:30 | External Medical Summary | Summary of Care ---
Author Name Unknown Organization [facility] Address [address] [place] [address] Phone [phone] Care Team Providers Care Collaborative Teacher Name Role Phone Hung Deleon DO Primary Care Provider [phone] Reason for Visit * Reason Onset Date Comments Test Results 03/27/2023 Unexpected or In determinate Result Encounter Details Date Type Department Care Team Description 03/27/2023 Telephone Laboratory, [place] [address] [place] [address] Lucero Aguayo MD [address] [place] [address] Test Results (Unexpected or Indeterminate ... Allergies [...] an unexpected or indeterminate finding on Hiren Starks ([id number]) and asks that you review the following [...] Thank you, TYREE Nieves Client Service Rep [facility] documented in this encounter Plan of Treatment Upcoming Encounters Date Type Specialty Care Team Description 05/15/2023 Cardiac Studies Cardiac Studies 06/17/2023 Laboratory Laboratory [facility] [address] [place] [address] 06/24/2023 Office Visit Family Medicine Reynold Levin MD [address] [place] [address] 07/20/2023 Office Visit Neurology Mayelin Oliveros MD [address] [place] [address] Scheduled Procedures Name Priority Associated Diagnoses Date/Ti [...] 03/06/2018 LUNG CANCER SCREENING - USE SMARTSET [id number] Completed 09/10/2018, 02/24/2002 Pneumococcal Vaccine: Pediatrics (0 [...] filedocumented as of this encounter Care Teams Collaborative Teacher Relationship Specialty Start Date End Date Hung Deleon DO [address] [place] [address] PCP - General Family Medicine 01/31/21 documented as of this encounter
--- OUTSIDE RECORDS SUMMARY | 2023-04-24 23:30 | External Medical Summary | Summary of Care ---
Author Name Unknown Organization [facility] Address [address] [facility] [place] [address] Phone [phone] Care Team Providers Care Refractory Specialist Name Role Phone Hung Deleon DO Primary Care Provider Reason for Visit * Reason Onset Date Comments Test Results 03/27/2023 Encounter Details Date Type Department Care Team Description 03/27/2023 Telephone Family Practice [address] [facility] [place] [address] [place] [phone] Hung Deleon DO [address] [place] [id number] Test Results Allergies Active Allergy Reactions Severity Noted Date [...] encounter Miscellaneous Notes * Telephone Encounter - Hung Deleon DO - 03/27/2023 3:53 PM EDT Advise follow with ordering physician and neurologist to discuss test results and further treatmentrecommendation documented in this encounter Plan of Treatment Upcoming Encounters Date Type Specialty Care Team Description 05/15/2023 Cardiac Studies Cardiac Studies 06/17/2023 Laboratory Laboratory [facility] [address] [facility] [place] [address] 06/24/2023 Office Visit Family Medicine Reynold Levin MD [address] [place] [address] 07/20/2023 Office Visit Neurology Mayelin Oliveros MD [address] [place] [address] Scheduled Procedures Name Priority Associated Diagnoses Date/Ti [...] 03/06/2018 LUNG CANCER SCREENING - USE SMARTSET [id number] Completed 09/10/2018, 02/24/2002 Pneumococcal Vaccine: Pediatrics (0 [...] filedocumented as of this encounter Care Teams Refractory Specialist Relationship Specialty Start Date End Date Hung Deleon DO [address] [place] [address] PCP - General Family Medicine 01/31/21 documented as of this encounter
--- OUTSIDE RECORDS SUMMARY | 2023-04-24 23:30 | External Medical Summary ---
Author Name Unknown Address Unknown Organization K09:[facility] [place] [address] Laboratory Report Ordering Provider Test Date Status ELIUD KEANE 03/09/2023 11:50:39 Final Observation Date Value Abnormality Reference (Units ) Status SYNC LEUKOCYTES IN BLOOD BY AUTOMATED COUNT 03/09/2023 11:50:39 10.60 4.00-10.80 (K/uL) Final Segs 03/09/2023 11:50:39 58.6 40.0-75.0 (%) Final Lymphs % 03/09/2023 11:50:39 29.0 18.0-42.0 (%) Final Monos 03/09/2023 11:50:39 9.2 1.0-11.0 (%) Final Eosinophils 03/09/2023 11:50:39 2.7 0.0-6.0 (%) Final Basos 03/09/2023 11:50:39 0.5 0.0-2.0 (%) Final Absolute Segs 03/09/2023 11:50:39 6.22 1.80-7.70 (K/uL) Final Lymphs, absolute 03/09/2023 11:50:39 3.07 1.00-4.80 (K/ul) Final Monos, Abs 03/09/2023 11:50:39 0.97 0.00-1.10 (K/uL) Final Eos, Abs 03/09/2023 11:50:39 0.29 0.00-0.70 (K/uL) Final Basos, Abs 03/09/2023 11:50:39 0.05 0.00-0.20 (K/uL) Final Performing Location [facility] [place] [address]
--- OUTSIDE RECORDS SUMMARY | 2023-04-24 23:30 | External Medical Summary | Summary of Care ---
Author Name Unknown Organization [facility] Address [address] [place] [address] Phone [phone] Care Team Providers Care Bacon Skin Lifter Name Role Phone Hung Deleon DO Primary Care Provider Reason for Visit * Reason Onset Date Comments Test Results 03/27/2023 Unexpected or In determinate Result Encounter Details Date Type Department Care Team Description 03/27/2023 Telephone Laboratory, [place] [address] [place] [address] Lucero Aguayo MD [address] [place] [address] Test Results (Unexpected or Indeterminate ... Allergies [...] 4:11 PM EDT Patient aware and verbalized understanding * Telephone Encounter - Lucero Aguayo MD [...] unexpected or indeterminate finding on Hiren Starks ([id number]) and asks that you review the following [...] Thank you, TYREE Nieves Client Service Rep [facility] documented in this encounter Plan of Treatment Upcoming Encounters Date Type Specialty Care Team Description 05/15/2023 Cardiac Studies Cardiac Studies 06/17/2023 Laboratory [facility] [address] [place] [address] 06/24/2023 Office Visit Family Medicine Reynold Levin MD [address] [place] [address] 07/20/2023 Office Visit Neurology Mayelin Oliveros MD [address] [place] [address], [place] [address] Scheduled Procedures Name Priority Associated Diagnoses Date/Ti [...] 03/06/2018 LUNG CANCER SCREENING - USE SMARTSET 42221 Completed 09/10/2018, 02/24/2002 Pneumococcal Vaccine: Pediatrics (0 [...] filedocumented as of this encounter Care Teams Bacon Skin Lifter Relationship Specialty Start Date End Date Hung Deleon DO [address] [place] [address] PCP - General Family Medicine 01/31/21 documented as of this encounter
--- OUTSIDE RECORDS SUMMARY | 2023-04-24 23:30 | External Medical Summary ---
Author Name Unknown Address Unknown Organization [facility] [address] [place] [address] Laboratory Report Ordering Provider Test Date Status DIYAELIUD JOHNSON 03/09/2023 11:50:39 Final Observation Date Value Abnormality Reference (Units ) Status BUN 03/09/2023 11:50:39 12 6-20 (mg/dL) Final Creatinine 03/09/2023 11:50:39 1.3 Above high normal 0.6-1.2 (mg/dL) Final Glomerular filtration rate/1.73 sq M.predicted [Volume Rate/Area] in Serum, Plasma or Blood by Creatinine-based formula (CKD-EPI) 03/09/2023 11:50:39 67 >=60 (mL/min) Final eGFR is calculated based on the CKD-EPI 2020 equation SODIUM 03/09/2023 11:50:39 138 135-146 (m mol/L) Final Potassium 03/09/2023 11:50:39 4.4 3.5-5.1 (m mol/L) Final Cl 03/09/2023 11:50:39 103 98-107 (mm ol/L) Final CO2 03/09/2023 11:50:39 26 22-32 (mmo l/L) Final Anion gap 03/09/2023 11:50:39 9 7-15 (mmol /L) Final Glucose 03/09/2023 11:50:39 102 70-120 (mg /dL) Final Albumin 03/09/2023 11:50:39 4.6 3.8-5.0 (g /dL) Final AST (Aspartate aminotransferase) 03/09/2023 11:50:39 18 10-50 (U/L) Final Alk Phos 03/09/2023 11:50:39 68 35-130 (U/ L) Final Bilirubin, Total 03/09/2023 11:50:39 0.4 <=1 .2 (mg/dL) Final Calcium 03/09/2023 11:50:39 9.5 8.4-10.2 ( mg/dL) Final Protein 03/09/2023 11:50:39 7.3 6.0-8.3 (g /dL) Final ALT (Alanine aminotransferase) 03/09/2023 11:50:39 24 10-50 (U/L) Final Performing Location [facility] [address] [place] [address]
--- OUTSIDE RECORDS SUMMARY | 2023-04-24 23:30 | External Medical Summary | Summary of Care ---
Author Name Unknown Organization [facility] Address [address] [facility] [place] [address] Phone [phone] Care Team Providers Care Demurrage Worker Name Role Phone Hung Deleon DO Primary Care Provider Reason for Visit * Reason Onset Date Comments Test Results 02/24/2023 Unexpected or In determinate Result Encounter Details Date Type Department Care Team Description 02/24/2023 Telephone General Internal Medicine [facility] [address] [place] [address] Lucero Aguayo MD 200 [place] [address] Test Results (Unexpected or Indeterminate ... Allergies Active Allergy Reactions Severity Noted Date Comments Sulfa Antibiotics Rash Medium 07/29/2019 SOB documented as of this encounter (statuses as of 02/24/2023) Medications Medication Sig Dispensed Refills Start Date End Date Status aspirin enteric coated 81 MG TBEC Take 1 Tablet by mouth in the morning. 100 Tab 3 06/03/2017 Active documented as of this encounter (statuses as of 02/24/2023) Active Problems Problem Noted Date Tobacco use disorder 10/17/2003 documented as of this encounter (statuses as of 02/24/2023) Resolved Problems Problem Noted Date Resolved Date ADVANCE DIRECTIVE INFORMATION 07/20/2006 Overview: No, Advance Directive brochure given to patient at prior appointment. Headache 10/17/2003 06/03/2017 Overview: ICD-10 update of inactive term Malaise and fatigue 10/17/2003 06/03/2017 Reflux esophagitis 06/03/2017 documented as of this encounter (statuses as of 02/24/2023) Immunizations Name Administration Dates Next Due Pneumococcal [...] encounter Miscellaneous Notes * Telephone Encounter - TYREE Henriquez - 02/24/2023 1:42 PM EDT Hello- The radiologist discovered an unexpected or indeterminate finding on Hiren Starks ([id number]) and asks that you review the following report. Study Type:CTA HEAD/CTA NECK Date of Study: 02.20.23 IMPRESSION 1. Small incompletely characterized focus of hypodensity seen within the anterior inferior left temporal lobe. A brain MRI with and without contrast is recommended for further evaluation. 2. No proximal large vessel occlusion or definitive focal aneurysm is identified. 3. No hemodynamically significant stenosis is identified within the common or extracranial internalcarotid arteries. 4. Additional findings as described above. Please respond to this encounter to acknowledge receipt of this message and take responsibility to ensure this report is reviewed. Thank you, TYREE Henriquez Client Service [facility] documented in this encounter Plan of Treatment Upcoming Encounters Date Type Specialty Care Team Description 03/09/2023 Office Visit Neurology Mayelin Oliveros MD 200 [facility] [place] [address] Scheduled Procedures Name Priority Associated Diagnoses Date/Ti [...] 11/17/2017 LUNG CANCER SCREENING - USE SMARTSET 25535 Completed 09/10/2018, 02/24/2002 Pneumococcal Vaccine: Pediatrics (0 [...] filedocumented as of this encounter Care Teams Demurrage Worker Relationship Specialty Start Date End Date Hung Deleon DO [address] [place] [address] PCP - General Family Medicine 01/31/21 documented as of this encounter
--- OUTSIDE RECORDS SUMMARY | 2023-04-24 23:30 | External Medical Summary | Summary of Care ---
Author Name Unknown Organization [facility] Address [address] [place] [address] Phone [phone] Care Team Providers Care Vault Person Name Role Phone Hung Deleon DO Primary Care Provider [phone] Reason for Referral * Precert (Within 10 days (routine)) - Pending Review Specialty Diagnoses / Procedures Referred By Contac t Referred To Contact Radiology Diagnoses Unilateral occipital headache Transient weakness of left lower extremity Weakness of left upper extremity Abnormal findings on diagnostic imaging of skull and head, not elsewhere classified Procedures MRI BRAIN W WO CONTRAST Lucero Aguayo MD 200 [facility] [place] [address] Referral ID Status Reason Start Date Expiration Date V isits Requested Visits Authorized [id number] Pending Review 02/24/2023 999 999 Reason for Visit * Reason Onset Date Comments Test Results 02/24/2023 Unexpected or In determinate Result Encounter Details Date Type Department Care Team Description 02/24/2023 Telephone General Internal Medicine [place] [address] [place] [address] Lucero Aguayo MD 200 [facility] [place] [address] Test Results (Unexpected or Indeterminate ... Allergies [...] encounter Miscellaneous Notes * Telephone Encounter - Lucero Aguayo MD - 02/24/2023 6:36 PM EDT Small area of abnormality in the left temporal lobe not well seen, no aneurysm or stenosis.--radiologist recommending MRI with and without contrast. Scheduling to also follow-up on check out note to -Shayla f/u and 40 min cpe with PCP/any provider--de gentile. * Telephone Encounter - Amie Sahu LPN - 02/24/2023 4:49 PM EDT Can you put it into simpler terms so we can explain the result to the patient? * Addendum Note - Lucero Aguayo MD - 02/24/2023 3:17 PM EDTAddended by: LUCERO AGUAYO on: 02/24/2023 03:17 PM Modules accepted: Orders * Telephone Encounter - Lucero Aguayo MD - 02/24/2023 3:14 PM EDT CTA head and neck as below--pl let him know and shayla MRI brain with and without contrast, ordered. * Telephone Encounter - TYREE Henriquez - 02/24/2023 1:42 PM EDT Hello- The radiologist discovered an unexpected or indeterminate finding on Hiren Starks ([id number]) and asks that you review the following [...] reviewed. Thank you, TYREE Henriquez Client Service [facility] documented in this encounter Plan of Treatment Upcoming Encounters Date Type Specialty Care Team Description 03/09/2023 Office Visit Neurology Mayelin Oliveros MD [address] [place] [address], [place] [address] Scheduled Orders Name Type Priority Associated Diagnoses Orde r Schedule MRI BRAIN W WO CONTRAST Medical Imaging Routine Unilateral occipital headache Transient weakness of left lower extremity Weakness of left upper extremity Abnormal findings on diagnostic imaging of skull and head, not elsewhere classified Expected: 02/24/2023, Expires: 03/26/2024 Scheduled Procedures Name Priority Associated Diagnoses Date/Ti [...] 11/17/2017 LUNG CANCER SCREENING - USE SMARTSET [id number] Completed 09/10/2018, 02/24/2002 Pneumococcal Vaccine: Pediatrics (0 [...] Not on filedocumented as of this encounter Visit Diagnoses Diagnosis Unilateral occipital headache- Primary Headache Transient weakness of left lower extremity Weakness of left upper extremity Other musculoskeletal symptoms referable to limbs Abnormal findings on diagnostic imaging of skull and head, not elsewhere classified documented in this encounter Care Teams Vault Person Relationship Specialty Start Date End Date Hung Deleon DO [address] [place] [address] PCP - General Family Medicine 01/31/21 documented as of this encounter
--- OUTSIDE RECORDS SUMMARY | 2023-04-24 23:30 | External Medical Summary | Summary of Care ---
Author Name Unknown Organization [facility] Address [address] [place] [facility] [place] [address] Phone [phone] Care Team Providers Care Swaging Machine Adjuster Name Role Phone Hung Deleon DO Primary Care Provider [phone] Reason for Referral * Precert (Within 10 days (routine)) - Pending Review Specialty Diagnoses / Procedures Referred By Contac t Referred To Contact Radiology Diagnoses Unilateral occipital headache Transient weakness of left lower extremity Weakness of left upper extremity Abnormal findings on diagnostic imaging of skull and head, not elsewhere classified Procedures MRI BRAIN W WO CONTRAST [facility]o MD [facility] [place] [address] Referral ID Status Reason Start Date Expiration Date V isits Requested Visits Authorized [id number] Pending Review 02/24/2023 999 999 Reason for Visit * Reason Onset Date Comments Test Results 02/24/2023 Unexpected or In determinate Result Scheduling 02/24/2023 Encounter Details Date Type Department Care Team Description 02/24/2023 Telephone General Internal Medicine [place] [address] [place] [address] [address] Lucero Aguayo MD [address] [facility] [place] [address] Test Results (Unexpected or Indeterminate ... Allergies Active Allergy Reactions Severity Noted Date Comments Sulfa Antibiotics Rash Medium 07/29/2019 SOB documented as of this encounter (statuses as of 02/25/2023) Medications Medication Sig Dispensed Refills Start Date End Date Status aspirin enteric coated 81 MG TBEC Take 1 Tablet by mouth in the morning. 100 Tab 3 06/03/2017 Active documented as of this encounter (statuses as of 02/25/2023) Active Problems Problem Noted Date Tobacco use disorder 10/17/2003 documented as of this encounter (statuses as of 02/25/2023) Resolved Problems Problem Noted Date Resolved Date ADVANCE DIRECTIVE INFORMATION 07/20/2006 Overview: No, Advance Directive brochure given to patient at prior appointment. Headache 10/17/2003 06/03/2017 Overview: ICD-10 update of inactive term Malaise and fatigue 10/17/2003 06/03/2017 Reflux esophagitis 06/03/2017 documented as of this encounter (statuses as of 02/25/2023) Immunizations Name Administration Dates Next Due Pneumococcal [...] Miscellaneous Notes * Telephone Encounter - TYREE Ramos - 02/25/2023 1:52 PM EDT Pt is scheduled for everything but the 40 minute cpe with PCP MY G sent 02/25 * Telephone Encounter - Mare Tejada LPN - 02/25/2023 7:40 AM EDT Provider to address: n/a Reason for Call: Test Results (Unexpected or Indeterminate Result) Contact: Telephone Call Contact Type: Test Results Outcome: Patient aware and verbalized understanding. Please call patient to schedule appointments needed as stated in previous encounter. Total Time including non face to face (minutes): 10 Mare Tejada LPN * Telephone Encounter - Lucero Aguayo MD - 02/24/2023 6:36 PM EDT Small area of abnormality in the left temporal lobe not well seen, no aneurysm or stenosis.--radiologist recommending MRI with and without contrast. Scheduling to also follow-up on check out note to -Shayla f/u and 40 min cpe with PCP/any provider--xle caregaps. * Telephone Encounter - Amie Sahu LPN [...] TYREE Henriquez - 02/24/2023 1:42 PM EDT [place]- The radiologist discovered an unexpected or indeterminate finding on Hiren Starks ([id number]) and asks that you review the following [...] reviewed. Thank you, TYREE Henriquez Client Service Rep [facility] documented in this encounter Plan of Treatment Upcoming Encounters Date Type Specialty Care Team Description 03/09/2023 Office Visit Neurology Mayelin Oliveros MD [address] [place] [address] 03/26/2023 Imaging Radiology Scheduled Orders Name Type Priority Associated Diagnoses [...] 11/17/2017 LUNG CANCER SCREENING - USE SMARTSET [id number] Completed 09/10/2018, 02/24/2002 Pneumococcal Vaccine: Pediatrics (0 [...] classified documented in this encounter Care Teams Swaging Machine Adjuster Relationship Specialty Start Date End Date Hung Deleon DO [address] [place] [address] PCP - General Family Medicine 01/31/21 documented as of this encounter
--- OUTSIDE RECORDS SUMMARY | 2023-04-24 23:30 | External Medical Summary | Summary of Care ---
Author Name Unknown Organization [facility] Address [address] [place] [address] Phone [phone] Care Team Providers Care Youth Counselor Name Role Phone Hung Deleon DO Primary Care Provider Reason for Visit * Reason Onset Date Comments Test Results 03/27/2023 Unexpected or In determinate Result Encounter Details Date Type Department Care Team Description 03/27/2023 Telephone Laboratory, [place] [address] [place] [address] Lucero Aguayo MD 200 [place] [address] Test Results (Unexpected or Indeterminate ... Allergies [...] unexpected or indeterminate finding on Hiren Starks ([id number]) and asks that you review the following [...] Thank you, TYREE Nieves Client Service Rep [facility] documented in this encounter Plan of Treatment Upcoming Encounters Date Type Specialty Care Team Description 05/15/2023 Cardiac Studies Cardiac Studies 06/17/2023 Laboratory Laboratory [place], [facility] [address] [place] [address] 06/24/2023 Office Visit Family Medicine Reynold Levin MD [address] [place] [address] 07/20/2023 Office Visit Neurology Mayelin Oliveros MD 200 [place] [address] Scheduled Procedures Name Priority Associated Diagnoses Date/Ti [...] 03/06/2018 LUNG CANCER SCREENING - USE SMARTSET [id number] Completed 09/10/2018, 02/24/2002 Pneumococcal Vaccine: Pediatrics (0 [...] filedocumented as of this encounter Care Teams Youth Counselor Relationship Specialty Start Date End Date Hung Deleon DO [address] [place] [address] PCP - General Family Medicine 01/31/21 documented as of this encounter
--- OUTSIDE RECORDS SUMMARY | 2023-04-24 23:30 | External Medical Summary | Summary of Care ---
Author Name Unknown Organization [facility] Address [address] [place] [address] Phone [phone] Care Team Providers Care Driller'S Offsider Name Role Phone Hung Deleon DO Primary Care Provider [phone] Reason for Visit * Reason Onset Date Comments Test Results 03/27/2023 Unexpected or In determinate Result Encounter Details Date Type Department Care Team Description 03/27/2023 Telephone Laboratory, [place] [address] [place] [address] Lucero Aguayo MD 200 [place] [address] Test Results (Unexpected or Indeterminate ... Allergies [...] or indeterminate finding on Hiren Oneil Tereza ([id number]) and asks that you review the following [...] Thank you, TYREE Nieves Client Service Rep [facility] documented in this encounter Plan of Treatment Upcoming Encounters Date Type Specialty Care Team Description 05/15/2023 Cardiac Studies Cardiac Studies 06/17/2023 Laboratory Laboratory [place], [facility] [place] [address] [place] [address] 06/24/2023 Office Visit Family Medicine Reynold Levin MD [address] [place] [address] 07/20/2023 Office Visit Neurology Mayelin Oliveros MD 200 [facility] [place] [address] Scheduled Procedures Name Priority Associated Diagnoses Date/Ti [...] 03/06/2018 LUNG CANCER SCREENING - USE SMARTSET 67430 Completed 09/10/2018, 02/24/2002 Pneumococcal Vaccine: Pediatrics (0 [...] filedocumented as of this encounter Care Teams Driller'S Offsider Relationship Specialty Start Date End Date Hung Deleon DO [address] [place] [address] PCP - General Family Medicine 01/31/21 documented as of this encounter
--- OUTSIDE RECORDS SUMMARY | 2023-04-24 23:30 | External Medical Summary | Summary of Care ---
Author Name Unknown Organization [facility] Address [address] [place] [address] Phone [phone] Care Team Providers Care Manager Star Name Role Phone Hung Deleon DO Primary Care Provider Reason for Visit * Reason Onset Date Comments Test Results 03/27/2023 Unexpected or In determinate Result Encounter Details Date Type Department Care Team Description 03/27/2023 Telephone Laboratory, [place] [address] [place] [address] Lucero Aguayo MD 200 [place] [address] Test Results (Unexpected or Indeterminate ... Allergies [...] Encounter - Beryl Ledesma CMA - 03/27/2023 4:24 PM EDT Images from the original note were not included. Mayelin Oliveros MD to [place] 4:19 PM Not related to patient's symptoms. * Telephone Encounter - Beryl Ledesma CMA [...] unexpected or indeterminate finding on Hiren Starks ([id number]) and asks that you review the following [...] Thank you, TYREE Nieves Client Service Rep [facility] [place] documented in this encounter Plan of Treatment Upcoming Encounters Date Type Specialty Care Team Description 05/15/2023 Cardiac Studies Cardiac Studies 06/17/2023 Laboratory Laboratory [place] [address] [place] [place] [address] 06/24/2023 Office Visit Family Medicine Reynold Levin MD [address] [place] [address] 07/20/2023 Office Visit Neurology Mayelin Oliveros MD 200 [place] [address] Scheduled Procedures Name Priority Associated Diagnoses Date/Ti [...] 03/06/2018 LUNG CANCER SCREENING - USE SMARTSET 33906 Completed 09/10/2018, 02/24/2002 Pneumococcal Vaccine: Pediatrics (0 [...] filedocumented as of this encounter Care Teams Manager Star Relationship Specialty Start Date End Date Hung Deleon DO [address] [place] [address] PCP - General Family Medicine 01/31/21 documented as of this encounter
--- OUTSIDE RECORDS SUMMARY | 2023-04-24 23:30 | External Medical Summary | Summary of Care ---
Author Name Unknown Organization [facility] [address] [facility] [address] Phone [phone] Care Team Providers Care Rigging Slinger Name Role Phone Hung Deleon DO Primary Care Provider Reason for Visit * Reason Comments Outpatient Testing Encounter Details Date Type Department Care Team Description 03/09/2023 Laboratory [facility] [place] [address] [place] [address] [place], [facility] [place] [address] [place] [id number] TIA (transient ischemic attack) Allergies Active Allergy Reactions Severity Noted Date Comments Sulfa Antibiotics Rash Medium 07/29/2019 SOB documented as of this encounter (statuses as of 03/09/2023) Medications Medication Sig Dispensed Refills Start Date End Date Status aspirin enteric coated 81 MG TBEC Take 1 Tablet by mouth in the morning. 100 Tab 3 06/03/2017 Active Aspirin 81 MG Oral Tablet Chewable Take 1 Tablet by mouth in the morning. 0 03/09/2023 Active documented as of this encounter (statuses as of 03/09/2023) Active Problems Problem Noted Date Tobacco use disorder 10/17/2003 documented as of this encounter (statuses as of 03/09/2023) Resolved Problems Problem Noted Date Resolved Date ADVANCE DIRECTIVE INFORMATION 07/20/2006 Overview: No, Advance Directive brochure given to patient at prior appointment. Headache 10/17/2003 06/03/2017 Overview: ICD-10 update of inactive term Malaise and fatigue 10/17/2003 06/03/2017 Reflux esophagitis 06/03/2017 documented as of this encounter (statuses as of 03/09/2023) Immunizations Name Administration Dates Next Due Pneumococcal [...] on file documented as of this encounter Plan of Treatment Upcoming Encounters Date Type Specialty Care Team Description 03/16/2023 NeuroDiagnostic Study Neurophysiology Sp, Neurophys Tech 200 [facility] [place] [place] [address] 03/26/2023 Imaging Radiology 05/15/2023 Cardiac Studies Cardiac Studies 07/20/2023 Office Visit Neurology Mayelin Oliveros MD 200 [facility] [place] [place] [address] Pending Results Name Type Priority Associated Diagnoses Date /Time LIPID PANEL WITH DIRECT LDL IF TG IS HIGH Lab Routine TIA (transient ischemic attack) 03/09/2023 11:50 AM EDT Scheduled Procedures Name Priority Associated Diagnoses Date/Ti [...] 11/17/2017 LUNG CANCER SCREENING - USE SMARTSET 32063 Completed 09/10/2018, 02/24/2002 Pneumococcal Vaccine: Pediatrics (0 [...] as of this encounter Visit Diagnoses Diagnosis TIA (transient ischemic attack) Unspecified transient cerebral ischemia documented in this encounter Care Teams Rigging Slinger Relationship Specialty Start Date End Date Hung Deleon DO [address] [place] [address] PCP - General Family Medicine 01/31/21 documented as of this encounter
--- OUTSIDE RECORDS SUMMARY | 2023-04-24 23:30 | External Medical Summary ---
Author Name Unknown Address Unknown Organization K09:[facility] [place] [address] Laboratory Report Ordering Provider Test Date Status ELIUD KEANE 03/09/2023 11:50:39 Final Observation Date Value Abnormality Reference (Units ) Status WBC, Total 03/09/2023 11:50:39 10.60 4.00-10.8 0 (K/uL) Final RBC 03/09/2023 11:50:39 5.37 4.50-5.25 (M/uL) Final Hemoglobin 03/09/2023 11:50:39 16.0 14.0-16.8 (g/dL) Final HCT 03/09/2023 11:50:39 47.9 40.0-48.4 (%) Final MCV 03/09/2023 11:50:39 89.2 82.0-99.5 (fL) Final MCH 03/09/2023 11:50:39 29.8 27.0-34.0 (pg) Final MCHC 03/09/2023 11:50:39 33.4 32.0-36.0 (g/dL) Final RDW 03/09/2023 11:50:39 13.4 11.5-15.5 (%) Final Platelets 03/09/2023 11:50:39 236 140-400 (K /uL) Final MPV 03/09/2023 11:50:39 10.2 6.6-11.1 ( fL) Final Performing Location [facility] [place] [address]
--- OUTSIDE RECORDS SUMMARY | 2023-04-24 23:30 | External Medical Summary | Summary of Care ---
Author Name Unknown Organization [facility] Address [address] [facility] [place] [address] Phone [phone] Care Team Providers Care Lock Expert Name Role Phone Pancho, Hung Primary Care Provider [phone] Reason for Referral * Precert (Within 10 days (routine)) - Pending Review Specialty Diagnoses / Procedures Referred By Contac t Referred To Contact Cardiac Studies Diagnoses TIA (transient ischemic attack) Procedures ECHO, COMPLETE (2D), TRANS-THORACIC Mayelin Oliveros MD [address] [place] [address] Referral ID Status Reason Start Date Expiration Date Visits Requested Visits Authorized [id number] Pending Review Precert 03/09/2023 999 999 Reason for Visit * Reason Comments NEW PATIENT * Evaluate & Treat - Unlimited Visits (Within 10 days (routine)) - Pending Review Specialty Diagnoses / Procedures Referred By Contac t Referred To Contact Neurology Diagnoses Unilateral occipital headache Transient weakness of left lower extremity Weakness of left upper extremity Lucero Aguayo MD [address] [place] [address] Referral ID Status Reason Start Date Expiration Date Visits Requested Visits Authorized [id number] Pending Review Specialty Services Required 02/19/2023 999 999 Encounter Details Date Type Department Care Team Description 03/09/2023 Office Visit Neurology State Mavis Mancilla [address] [place] [address] [address] Mayelin Oliveros MD [address] [place] [address] TIA (transient ischemic attack)* Allergies Active Allergy Reactions Severity Noted Date [...] Sign Reading Time Taken Comments Blood Pressure 134/66 03/09/2023 10:22 AM EDT Pulse 76 03/09/2023 10:22 AM EDT Temperature 36.6 C (97.9 F) 03/09/2023 1 0:22 AM EDT Respiratory Rate 20 03/09/2023 10:2 2 AM EDT Oxygen Saturation 98% 03/09/2023 10: 22 AM EDT Inhaled Oxygen Concentration - - Weight 72.1 kg (158 lb 14.4 oz) 023 10:22 AM EDT Height 174 cm (5' 8.5") 03/09/2023 10:2 2 AM EDT Body Mass Index 23.81 03/09/2023 10:22 AM EDT documented in this encounter Patient Instructions * Patient Instructions* Mayelin Oliveros MD - 03/09/2023 11:16 AM EDT Stop smoking Start aspirin 81 mg once a day documented in this encounter Progress Notes * Mayelin Oliveros MD - 03/09/2023 11:24 AM EDT Images from the original note were not included. CLINIC NOTES Neurology [address] [facility] [address] Hiren Starks : 1970 NEUROLOGY OUTPATIENT NOTE 03/09/2023 HISTORY: The patient is referred for consultation by Dr. Aguayo, who will be receiving a copy of this note. Reason for consultation assess of spells. The patient is a 53-year-old right-handed male with a history reflux cigarette smoking. Beginning 2 months ago he began having episodes of left shamir paresis. The initial spell was 2 months ago while standing he noted tingling of his left arm and then left arm flaccid numbness lasting 2 minutes felt mildly lightheaded but not vertiginous there were nocranial nerve signs. He had a slight left hemicranial headache which is not unusual for him. Six weeks ago work he felt lightheaded his left arm tingled and his entire left arm became weak lasting 2-5 minutes he may have had a slight left hemicranial headache there were no cranial nerve symptoms. About 4 weeks ago he was noted tingling of the left arm the left arm became flaccid and lasted 2-5 minutes not associated with headache. On another occasion he noted tingling of his left arm than his left arm and left leg became lasted 5 minutes no cranial nerve symptoms. Unclear if headache. Anotherepisode the patient developed left arm numbness and tingling than left arm weakness and left leg weakness lasting 5 minutes. Without episode he felt lightheaded any difficulty with vision in his lefteye he has difficulty explaining that IE was not scintillating was not blind. Been an inconsistent relationship of headache. During 1 of the episodes he forgot what he was doingat work. There is no chest pain palpitations shortness of breath no head or neck trauma he was not ill. He denies neck pain. For many years he has had episodic ice-pick type headaches in the right or left occipital region they are nonexertional and lasts several minutes. Mother had transient ischemic attacks. The patient underwent a CTA of the head and neck which I have reviewed and shows no high-grade vertebrobasilar stenosis or intracranial stenosis. There is a questionable hypodensity in the left temporal lobe 02/20/2023 4:18 PM CTA HEAD/CTA NECK Order: [id number] Status: Final result Visible to patient: Yes (seen) Next appt: 03/26/2023 at 10:30 AM in Radiology (Senior Structural Engineer) Dx: Weakness of left upper extremity; Uni... 1 Result Note 1 Patient Communication Findings Acuity Comment Unspecified Finding Unexpected or Indeterminate Details Reading Physician Reading Date Result Priority Rajani Orellana MD [phone] 02/24/2023 Narrative & Impression EXAM CTA HEAD/CTA NECK HISTORY Intermittent left occipital headache and transient weakness left ue and le x 2 months. COMPARISON None. TECHNIQUE 02/20/2023 4:18 pm. Routine protocol CTA of the head was performed with and without administration of IV contrast. Routine protocol CTA of the neck was performed after the administration of IV contrast. Coronal and sagittal reformatted images were then performed. Additional reconstructed images were performed by the 3D lab. FINDINGS Head CT: The ventricles and sulci are within normal limits in size for patient age. There are tiny bilateral basal ganglial calcifications. There is a small incompletely characterized focus of hypodensity seen within the anterior inferior left temporal lobe. There is no acute intracranial hemorrhage identified. There is no significant mass effect or midline shift. The basal cisterns are patent. The orbits are unremarkable. The nasal septum is deviated to the right with a rightward septal spur. There is minimal mucosal thickening of the right frontal sinus. There is minimal mucosal thickening of the right posterior ethmoid air cells. There is a mucous retention cyst within the right maxillary sinus. The mastoid air cells are clear. There is incomplete fusion of the posterior arch of C1. CTA head: The V4 segments of the vertebral arteries are patent. There is a patent left PICA. There is a patent right PICA. The basilar artery is patent. The proximal superior cerebellar arteries are patent. The bilateral posterior cerebral arteries are patent. The internal carotid arteries are patent through the skull base. The left M1 segment is patent. Theproximal left M2 branches are patent. The A1 segments are patent. There is a patent anterior communicating artery. The A2 segments are patent. The right M1 segment is patent. The proximal right M2 branches are patent. No proximal large vessel occlusion or definitive focal aneurysm is identified. CTA neck: The origin of the left subclavian artery is visualized. The origin of the left vertebral artery is visualized. The extracranial left vertebral artery is patent. The origin of the left common carotid artery is visualized. No hemodynamically significant stenosisis identified within the left common or extracranial left internal carotid artery. The origin of the innominate artery is unremarkable. The origin of the right common carotid artery is unremarkable. No hemodynamically significant stenosis is identified within the right common or extracranial right ICA. The origin of the right subclavian artery is visualized. The origin of the right vertebral artery is visualized. The extracranial right vertebral artery is patent. Additional findings: There are degenerative changes of C1-C2. There is endplate osteophyte formation at C4-C5 and C6-7. There is intervertebral disc space narrowing, endplate osteophyte formation, and endplate degenerative changes at C5-6. There is multilevel endplate osteophyte formation within the thoracic spine at T2-T3 and T3-T4. Vertebral body heights are maintained. The prevertebral soft tissues are within normal limits. No focal consolidation is identified within the lung apices. IMPRESSION IMPRESSION 1. Small incompletely characterized focus of hypodensity seen within the anterior inferior left temporal lobe. A brain MRI with and without contrast is recommended for further evaluation. 2. No proximal large vessel occlusion or definitive focal aneurysm is identified. 3. No hemodynamically significant stenosis is identified within the common or extracranial internalcarotid arteries. 4. Additional findings as described above. 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 Patient Active Problem List Diagnosis Code Tobacco use disorder F17.200 Past Surgical History: Procedure Laterality Date COLONOSCOPY, DIAGNOSTIC (RECTUM) 07/03/2017 adenomatous & TVA polyps, repeat 2 yrs/COLONOSCOPY FLEXIBLE PROXIMAL DIAGNOSTIC performed by Tacos Narayanan MD at ENDOSCOPY [facility] COLONOSCOPY, DIAGNOSTIC (RECTUM) 08/09/2019 adenomatous polyps, diverticulosis, repeat 3 yrs / COLONOSCOPY FLEXIBLE PROXIMAL DIAGNOSTIC performed by Tacos Narayanan MD at ENDOSCOPY [facility] REMOVE TONSILS & ADENOIDS, UNDER 12 T & A, age<12 RMV LSN SCLP,NCK,EXT 2.1-3.0CM Cyst on neck Social History Socioeconomic History Marital status: Spouse name: Not on file Number of children: Not on file Years of education: Not on file Highest education level: Not on file Occupational History Not on file Tobacco Use Smoking status: Every Day Packs/day: 1.25 Years: 30.00 Pack years: 37.50 Types: Cigarettes Smokeless tobacco: Never Vaping Use Vaping Use: Never used Substance and Sexual Activity Alcohol use: No Drug use: No Comment: HEAVY CAFFEINE Sexual activity: Not on file Other Topics Concern Not on file Social History Narrative Not on file Social Determinants of Health Financial Resource Strain: Not on file Food Insecurity: Not on file Transportation Needs: Not on file Physical Activity: Not on file Stress: Not on file Social Connections: Not on file Intimate Partner Violence: Not on file Housing Stability: Not on file Family History Problem Relation Age of Onset Diabetes Mother Stroke Mother Diabetes Father Hypertension Father Cancer Father prostate, stomach Colon cancer Father No Past Hx Sister Prostate cancer Brother 49 Heart Disorder Brother 42yr No Past Hx Brother No Past Hx Brother Current Outpatient Medications Medication Sig Dispense Refill Aspirin 81 MG Oral Tablet Chewable Take 1 Tablet by mouth in the morning. aspirin enteric coated 81 MG TBEC Take 1 Tablet by mouth in the morning. 100 Tab 3 No current facility-administered medications for this visit. Review of patient's allergies indicates: Allergen Reactions Sulfa Antibiotics Rash SOB Results for orders placed or performed in visit on 03/28/21 BASIC METABOLIC PANEL Result Value Ref Range BUN 8 6 - 20 mg/dL Creatinine 1.1 0.6 - 1.2 mg/dL Estimated Glomerular Filtration Rate 77.1 >=60.0 mL/min Sodium 140 135 - 146 mmol/L Potassium 4.2 3.5 - 5.1 mmol/L Chloride 103 98 - 107 mmol/L CO2 26 22 - 32 mmol/L Anion Gap 11 7 - 15 mmol/L Glucose 122 (H) 70 - 120 mg/dL Calcium 9.0 8.4 - 10.2 mg/dL Results for orders placed or performed in visit on 03/06/18 LIPID PANEL Result Value Ref Range HOURS FASTING >8 HOURS hours Triglycerides 84 <200 mg/dL Cholesterol 123 <200 mg/dL HDL Cholesterol 32 (L) >39 mg/dL Cholesterol-HDL Ratio 3.8 LDL Cholesterol 74 0 - 129 mg/dL No results found for: HEMOGLOBIN A1C Lab Results Component Value Date/Time TSH - GENESIS 0.63 10/17/2003 12:39 PM No results found for: CHELSEY No results found for: [id number] No results found for: [id number] No results found for: [id number] No results found for: 25OHVITAMIND Vitamin D Level Interpretation deficient: <20 ng/ml insufficient: 20-30 ng/ml normal: 31-100 ng/ml REVIEW OF SYSTEMS: As above PHYSICAL EXAM: BP 134/66 (BP Site: Right Arm, BP Position: Sitting, BP Cuff Size: Regular) | Pulse 76 | Temp 36.6 C (97.9 F) (Tympanic) | Resp 20 | Ht 1.74 m (5' 8.5") | Wt 72.1 kg (158 lb 14.4 oz) | SpO2 98% | BMI 23.81 kg/m | BSA 1.87 m Well-developed male in no distress normal speech and language affect appropriate no carotid bruits no heart murmurs heart is regular rate and rhythm no temporal artery tenderness no occipital tenderness. Pupils are equal round reactive to light the optic nerves are unremarkable there is normal pearl motility facial sensation and facial symmetry spontaneous speech and language are unremarkable Tinel's at the elbow causes tingling in the left thumb. Tinel's is negative at the wrist. There is normal bulk and tone full strength in the upper and lowers no drift normal rapid alternating movements symmetric reflexes downgoing toes eranoa-bo-eaid and kibr-wl-cuml are normal gait and tandem are normal sensation is intact to li vibration sense. There may be decreased light touch in left fingers 2 through 5. IMPRESSION: Recurrent left hemiparesis with dizziness only 1 episode with impaired vision. Suggestive of transient ischemia although no large vessel stenosis. Plan MRI brain echo Zio. CBC and chemistry profile today fasting lipid profile recommended with goal LDL of 70 or less. Begin anti-platelet therapy with aspirin 81 mg once a day. Smoking cessation advised. Within the differential is seizure, although doubt EEG ordered. This could be migrainous although the headache is not migraine like and rather unimpressive and not persistently present. Additionally episode could represent a spinal cord process although the absence of pain contralateral sensory symptoms makes this less likely. I encouraged the patient if he had another event to seek medical attention urgently When his MRI is done he will have the report forward to me. The return in 8 weeks Mayelin Oliveros MD 03/09/2023 11:24 AM documented in this encounter Nursing Notes * Octavia Mcfadden LPN - 03/09/2023 10:20 AM EDT Patient verified identity by spelling of last name and date. New patient referral from Dr Patton left extremity numbness documented in this encounter Plan of Treatment Upcoming Encounters Date Type Specialty Care Team Description 03/16/2023 NeuroDiagnostic Study Neurophysiology Sp, Neurophys Tech [address] [facility] [place] [address] 03/26/2023 Imaging Radiology 05/15/2023 Cardiac Studies Cardiac Studies 07/20/2023 Office Visit Neurology Mayelin Oliveros MD [address] [facility] [place] [address] Pending Results Name Type Priority Associated Diagnoses Date /Time CBC WITH WBC DIFFERENTIAL Lab Routine TIA (transient ischemic attack) 03/09/2023 11:50 AM EDT COMPREHENSIVE METABOLIC PANEL Lab Routine TIA (transient ischemic attack) 03/09/2023 11:50 AM EDT LIPID PANEL WITH DIRECT LDL IF TG IS HIGH Lab Routine TIA (transient ischemic attack) 03/09/2023 11:50 AM EDT CBC Lab Routine TIA (transient ischemic attack) 03/09/2023 11:50 AM EDT DIFFERENTIAL, AUTOMATED Lab Routine TIA (transient ischemic attack) 03/09/2023 11:50 AM EDT Scheduled Orders Name Type Priority Associated Diagnoses Orde r Schedule EEG ROUTINE Procedures Routine TIA (transient ischemic attack) Ordered: 03/09/2023 ECHO, COMPLETE (2D), TRANS-THORACIC Echocardiology Routine TIA (transient ischemic attack) Ordered: 03/09/2023 EXTERNAL EKG 8 TO 15 DAYS Holter Routine TIA (transient ischemic attack) Expected: 03/10/2023 (Approximate), Expires: 03/09/2024 LIPID PANEL WITH DIRECT LDL IF TG IS HIGH Lab Routine TIA (transient ischemic attack) Expected: 03/10/2023, Expires: 05/13/2023 Scheduled Procedures Name Priority Associated Diagnoses Date/Ti [...] 11/17/2017 LUNG CANCER SCREENING - USE SMARTSET [id number] Completed 09/10/2018, 02/24/2002 Pneumococcal Vaccine: Pediatrics (0 [...] encounter Visit Diagnoses Diagnosis TIA (transient ischemic attack)- Primary Unspecified transient cerebral ischemia documented in this encounter Care Teams Lock Expert Relationship Specialty Start Date End Date Hung Deleon DO [address] [place] [address] PCP - General Family Medicine 01/31/21 documented as of this encounter
--- OUTSIDE RECORDS SUMMARY | 2023-04-24 23:30 | External Medical Summary | Summary of Care ---
Author Name Unknown Organization [facility] Address [address] [place] [address] Phone [phone] Care Team Providers Care Roto Mixer Operator Name Role Phone Hung Deleon DO Primary Care Provider [phone] Reason for Referral * Precert (Within 10 days (routine)) - Pending Review Specialty Diagnoses / Procedures Referred By Contac t Referred To Contact Radiology Diagnoses Unilateral occipital headache Transient weakness of left lower extremity Weakness of left upper extremity Abnormal findings on diagnostic imaging of skull and head, not elsewhere classified Procedures MRI BRAIN W WO CONTRAST Lucero Aguayo MD [address] [facility] [place] [address] Referral ID Status Reason Start Date Expiration Date V isits Requested Visits Authorized [id number] Pending Review 02/24/2023 999 999 Reason for Visit * Reason Onset Date Comments Test Results 02/24/2023 Unexpected or In determinate Result Encounter Details Date Type Department Care Team Description 02/24/2023 Telephone General Internal Medicine [place] [address] [place] [address] Lucero Aguayo MD [address] [facility] [place] [address] Test Results (Unexpected or Indeterminate ... Allergies [...] encounter Miscellaneous Notes * Telephone Encounter - Amie Sahu LPN [...] neck as below--pl let him know and celena MRI brain with and without contrast, ordered. * Telephone Encounter - TYREE Henriquez - 02/24/2023 1:42 PM EDT Hello- The radiologist discovered an unexpected or indeterminate finding on Hiren Starks ([id number]) and asks that you review the following [...] reviewed. Thank you, TYREE Henriquez Client Service [facility] documented in this encounter Plan of Treatment Upcoming Encounters Date Type Specialty Care Team Description 03/09/2023 Office Visit Neurology Mayelin Oliveros MD [address] [place] [address] Scheduled Orders Name Type Priority Associated Diagnoses [...] 11/17/2017 LUNG CANCER SCREENING - USE SMARTSET [id number] Completed 09/10/2018, 02/24/2002 Pneumococcal Vaccine: Pediatrics (0 [...] classified documented in this encounter Care Teams Roto Mixer Operator Relationship Specialty Start Date End Date Hung Deleon DO [address] [place] [address] PCP - General Family Medicine 01/31/21 documented as of this encounter
--- OUTSIDE RECORDS SUMMARY | 2023-04-24 23:30 | External Medical Summary | Summary of Care ---
Author Name Unknown Organization [facility] Address [address] [place] [address] Phone [phone] Care Team Providers Care Computer Engineering Professor Name Role Phone Hung Deleon DO Primary Care Provider [phone] Reason for Referral * Precert (Within 10 days (routine)) - Pending Review Specialty Diagnoses / Procedures Referred By Contac t Referred To Contact Radiology Diagnoses Unilateral occipital headache Transient weakness of left lower extremity Weakness of left upper extremity Abnormal findings on diagnostic imaging of skull and head, not elsewhere classified Procedures MRI BRAIN W WO CONTRAST Lucero Aguayo MD 200 [facility] [place] [address] Referral ID Status Reason Start Date Expiration Date V isits Requested Visits Authorized [id number] Pending Review 02/24/2023 999 999 Reason for Visit * Reason Onset Date Comments Test Results 02/24/2023 Unexpected or In determinate Result Encounter Details Date Type Department Care Team Description 02/24/2023 Telephone General Internal Medicine [place] [address] [place] [address] Lucero Aguayo MD [address] [facility] [place] [address] Test Results (Unexpected or Indeterminate ... Allergies [...] as of this encounter Miscellaneous Notes * Addendum Note - Lucero Aguayo MD [...] unexpected or indeterminate finding on Hiren Starks ([id number]) and asks that you review the following [...] reviewed. Thank you, TYREE Henriquez Client Service [facility] documented in this encounter Plan of Treatment Upcoming Encounters Date Type Specialty Care Team Description 03/09/2023 Office Visit Neurology Mayelin Oliveros MD [address] [place] [address] Scheduled Orders Name Type Priority Associated Diagnoses [...] 11/17/2017 LUNG CANCER SCREENING - USE SMARTSET [id number] Completed 09/10/2018, 02/24/2002 Pneumococcal Vaccine: Pediatrics (0 [...] classified documented in this encounter Care Teams Computer Engineering Professor Relationship Specialty Start Date End Date Hung Deleon DO [address] [place] [address] PCP - General Family Medicine 01/31/21 documented as of this encounter
--- OUTSIDE RECORDS SUMMARY | 2023-04-24 23:30 | External Medical Summary | Summary of Care ---
Author Name Unknown Organization [facility] Address [address] [facility] [place] [address] Phone [phone] Care Team Providers Care Ppa Teacher Name Role Phone Hung Deleon DO Primary Care Provider [phone] Reason for Visit * Reason Comments EEG Encounter Details Date Type Department Care Team Description 03/16/2023 NeuroDiagnostic Study Neurophysiology [facility] [address] Sp, Neurophys Tech [address] [facility] [address] Allergies Active Allergy Reactions Severity Noted Date Comments Sulfa Antibiotics Rash Medium 07/29/2019 SOB documented as of this encounter (statuses as of 03/20/2023) Medications Medication Sig Dispensed Refills Start Date [...] as of this encounter (statuses as of 03/20/2023) Active Problems Problem Noted Date Tobacco use disorder 10/17/2003 documented as of this encounter (statuses as of 03/20/2023) Resolved Problems Problem Noted Date Resolved Date ADVANCE DIRECTIVE INFORMATION 07/20/2006 Overview: No, Advance Directive brochure given to patient at prior appointment. Headache 10/17/2003 06/03/2017 Overview: ICD-10 update of inactive term Malaise and fatigue 10/17/2003 06/03/2017 Reflux esophagitis 06/03/2017 documented as of this encounter (statuses as of 03/20/2023) Immunizations Name Administration Dates Next Due Pneumococcal [...] on file documented as of this encounter Progress Notes * Mathieu Perales, DO - 03/20/2023 6:24 AM EDT ROUTINE EEG REPORT Name: Hiren Starks Date of study: 03/16/23 Age: [age] year old Outpatient Referring Physician: Mayelin Oliveros MD TECHNICAL REMARKS: This is a technically satisfactory eighteen channel record employing 21 disc electrodes applied according to a measured international 10-20 electrode placement system. There were no significant technical difficulties. CLINICAL INFORMATION: A 53 year old male with transient recurrent left hemianesthesias and left hemiparesis. EEG performed for evaluation of epileptiform activity. Current Outpatient Medications Medication Sig Dispense Refill aspirin enteric coated 81 MG TBEC Take 1 Tablet by mouth in the morning. 100 Tab 3 Aspirin 81 MG Oral Tablet Chewable Take 1 Tablet by mouth in the morning. Rosuvastatin Calcium 10 MG Oral Tablet (Crestor) Take 1 Tablet by mouth in the morning. 90 Tablet 1 No current facility-administered medications for this visit. REPORT: At the onset of the EEG, the patient is awake. The background activity consist of 9-10 Hz, persistent, posteriorly dominant, moderate amplitude, symmetric and rhythmic activity that is reactive to eye opening. Anteriorly, it consist of a mixture of low voltage indeterminate activity and 15-25 Hz, persistent, low amplitude, symmetric and rhythmic activity. Stepwise intermittent photic stimulation (1-21 Hz) does not induce any abnormalities. Drowsiness is characterized by low amplitude mixed frequency activity, roving eye movements, and decreased eye blinking and muscle artifact. IMPRESSION: This is a normal awake and drowsy routine EEG. There is no evidence of focal slowing orepileptiform activity. Mathieu Perales DO documented in this encounter Plan of Treatment Upcoming Encounters Date Type Specialty Care Team Description 03/26/2023 Imaging Radiology 05/15/2023 Cardiac Studies Cardiac Studies 06/17/2023 Laboratory Laboratory [facility] [place] [address] 06/24/2023 Office Visit Family Medicine Reynold Levin MD [address] [place] [address] 07/20/2023 Office Visit Neurology Mayelin Oliveros MD 200 [place] [address] Scheduled Procedures Name Priority Associated Diagnoses Date/Ti [...] 03/06/2018 LUNG CANCER SCREENING - USE SMARTSET [id number] Completed 09/10/2018, 02/24/2002 Pneumococcal Vaccine: Pediatrics (0 [...] as of this encounter Visit Diagnoses Diagnosis Transient hemiplegia (HCC) [G81.90 (ICD-10-CM)]- Primary Hemiplegia, unspecified, affecting unspecified side documented in this encounter Care Teams Ppa Teacher Relationship Specialty Start Date End Date Hung Deleon DO [address] [place] [address] PCP - General Family Medicine 01/31/21 documented as of this encounter
--- OUTSIDE RECORDS SUMMARY | 2023-04-24 23:30 | External Medical Summary | Summary of Care ---
Author Name Unknown Organization [facility] Address [address] [place] [address] Phone [phone] Care Team Providers Care Housekeeping Worker Name Role Phone Hung Deleon DO Primary Care Provider [phone] Reason for Visit * Reason Onset Date Comments Test Results 03/27/2023 Unexpected or In determinate Result Encounter Details Date Type Department Care Team Description 03/27/2023 Telephone Laboratory, [place] [address] [place] [address] Lucero Aguayo MD 200 [place] [address] Test Results (Unexpected or Indeterminate ... Allergies [...] unexpected or indeterminate finding on Hiren Starks ([id number]) and asks that you review the following [...] Thank you, TYREE Nieves Client Service Rep [facility] documented in this encounter Plan of Treatment Upcoming Encounters Date Type Specialty Care Team Description 05/15/2023 Cardiac Studies Cardiac Studies 06/17/2023 Laboratory Laboratory Jett Kramer [address] [place] [address] 06/24/2023 Office Visit Family Medicine Reynold Levin MD [address] [place] [address] 07/20/2023 Office Visit Neurology Mayelin Oliveros MD 200 [facility] [place] [address] Scheduled Procedures Name Priority Associated Diagnoses Date/Ti [...] 03/06/2018 LUNG CANCER SCREENING - USE SMARTSET [id number] Completed 09/10/2018, 02/24/2002 Pneumococcal Vaccine: Pediatrics (0 [...] filedocumented as of this encounter Care Teams Housekeeping Worker Relationship Specialty Start Date End Date Hung Deleon DO [address] [place] [address] PCP - General Family Medicine 01/31/21 documented as of this encounter
--- OUTSIDE RECORDS SUMMARY | 2023-04-24 23:30 | External Medical Summary | Summary of Care ---
Author Name Unknown Organization [facility] Address [address] [facility] [place] [address] Phone [phone] Care Team Providers Care Employment Appeals Examiner Name Role Phone Hung Deleon DO Primary Care Provider Reason for Referral * [...] W WO CONTRAST Lucero Aguayo MD [address] [facility] [place] [address] Referral ID Status Reason Start Date Expiration Date V isits Requested Visits Authorized [id number] Pending Review 02/24/2023 999 999 Reason for Visit * Reason Onset Date Comments Test Results 02/24/2023 Unexpected or In determinate Result Scheduling 02/24/2023 Encounter Details Date Type Department Care Team Description 02/24/2023 Telephone General Internal Medicine [place] Mavis Mancilla [address] [place] [address] Lucero Aguayo MD [address] [facility] [place] [address] Test Results (Unexpected or Indeterminate ... Allergies [...] encounter Miscellaneous Notes * Telephone Encounter - Mare Tejada LPN [...] unexpected or indeterminate finding on Hiren Starks ([id number]) and asks that you review the following [...] Thank you, TYREE Henriquez Client Service Rep [facility] [place] documented in this encounter Plan of Treatment Upcoming Encounters Date Type Specialty Care Team Description 03/09/2023 Office Visit Neurology Mayelin Oliveros MD [address] [place] [address] Scheduled Orders Name Type Priority Associated Diagnoses [...] 11/17/2017 LUNG CANCER SCREENING - USE SMARTSET [id number] Completed 09/10/2018, 02/24/2002 Pneumococcal Vaccine: Pediatrics (0 [...] classified documented in this encounter Care Teams Employment Appeals Examiner Relationship Specialty Start Date End Date Hung Deleon DO [address] [place] [address] PCP - General Family Medicine 01/31/21 documented as of this encounter
--- OUTSIDE RECORDS SUMMARY | 2023-04-24 23:30 | External Medical Summary | Summary of Care ---
Author Name Unknown Organization [facility] Address [address] [facility] [place] [address] Phone [phone] Care Team Providers Care Sole Ruffer Name Role Phone Hung Deleon DO Primary Care Provider Reason for Visit * Reason Onset Date Comments Appointment 03/10/2023 Encounter Details Date Type Department Care Team Description 03/10/2023 Telephone Family Practice [facility] [address] [place] [address] Hung Deleon DO [address] [place] [address] Appointment Allergies Active Allergy Reactions Severity Noted Date Comments Sulfa Antibiotics Rash Medium 07/29/2019 SOB documented as of this encounter (statuses as of 03/10/2023) Medications Medication Sig Dispensed Refills Start Date [...] as of this encounter (statuses as of 03/10/2023) Active Problems Problem Noted Date Tobacco use disorder 10/17/2003 documented as of this encounter (statuses as of 03/10/2023) Resolved Problems Problem Noted Date Resolved Date ADVANCE DIRECTIVE INFORMATION 07/20/2006 Overview: No, Advance Directive brochure given to patient at prior appointment. Headache 10/17/2003 06/03/2017 Overview: ICD-10 update of inactive term Malaise and fatigue 10/17/2003 06/03/2017 Reflux esophagitis 06/03/2017 documented as of this encounter (statuses as of 03/10/2023) Immunizations Name Administration Dates Next Due Pneumococcal [...] encounter Miscellaneous Notes * Telephone Encounter - Tootie Hernandez - 03/10/2023 2:51 PM EDT Appts scheduled with pt * Telephone Encounter - Hung Deleon DO - 03/10/2023 2:42 PM EDT Spoke with patient. Lab studies reviewed with patient showing LDL level 76, target less than 70 with diagnosis of TIA Patient advised start rosuvastatin 10 mg 1 tab once daily low-fat low- cholesterol high-fiber diet exercise. Patient advised repeat lab studies in 3 months. for lipid panel hepatic function panel and BMP. Discussed transitioning PCP care to Dr. Levin as per patient request Please assist with scheduling lab testing and medical follow-up. * Telephone Encounter - Hung Deleon DO - 03/10/2023 2:42 PM EDT ----- Message from Mayelin Oliveros MD sent at 03/10/2023 12:51 PM EDT ----- Fyi re cr documented in this encounter Plan of Treatment Upcoming Encounters Date Type Specialty Care Team Description 03/16/2023 NeuroDiagnostic Study Neurophysiology Sp, Neurophys Tech 200 [place] [address] 03/26/2023 Imaging Radiology 05/15/2023 Cardiac Studies Cardiac Studies 06/17/2023 Laboratory Laboratory [facility] [address] [facility] [address] 06/24/2023 Office Visit Family Medicine Reynold Levin MD [address] [facility] [place] [address] 07/20/2023 Office Visit Neurology Mayelin Oliveros MD [address] [facility], [place] [address] Scheduled Orders Name Type Priority Associated Diagnoses Orde r Schedule LIPID PANEL WITH DIRECT LDL IF TG IS HIGH Lab Routine Dyslipidemia, goal LDL below 70 Expected: 06/10/2023, Expires: 03/10/2024 BASIC METABOLIC PANEL Lab Routine Dyslipidemia, goal LDL below 70 Expected: 06/10/2023 (Approximate), Expires: 03/09/2024 HEPATIC FUNCTION PANEL Lab Routine Dyslipidemia, goal LDL below 70 Expected: 06/10/2023 (Approximate), Expires: 03/09/2024 Scheduled Procedures Name Priority Associated Diagnoses Date/Ti [...] 03/06/2018 LUNG CANCER SCREENING - USE SMARTSET [id number] Completed 09/10/2018, 02/24/2002 Pneumococcal Vaccine: Pediatrics (0 [...] as of this encounter Visit Diagnoses Diagnosis Dyslipidemia, goal LDL below 70- Primary Other and unspecified hyperlipidemia History of TIA (transient ischemic attack) Transient ischemic attack (TIA), and cerebral infarction without residual deficits documented in this encounter Care Teams Sole Ruffer Relationship Specialty Start Date End Date Hung Deleon DO [address] [place] [address] PCP - General Family Medicine 01/31/21 documented as of this encounter
--- OUTSIDE RECORDS SUMMARY | 2023-04-24 23:30 | External Medical Summary | Summary of Care ---
Author Name Unknown Organization [facility] Address [address] [place] [address] Phone [phone] Care Team Providers Care Hazardous Materials Handler Name Role Phone Hung Deleon DO Primary Care Provider Reason for Visit * Reason Onset Date Comments Test Results 03/27/2023 Unexpected or In determinate Result Encounter Details Date Type Department Care Team (Late st Contact Info) Description 03/27/2023 Telephone Laboratory, [place] [address] [place] [address] Lucero Aguayo MD 200 [place] [address] Test Results (Unexpected or Indeterminate ... Allergies Active Allergy Reactions Criticality Noted Date Comments Sulfa Antibiotics Rash Medium 07/29/2019 SOB documented as of this encounter (statuses as of 03/30/2023) Medications Medication Sig Dispensed Refills Start Date [...] as of this encounter (statuses as of 03/30/2023) Active Problems Problem Noted Date Diagnosed Date Tobacco use disorder 10/17/2003 documented as of this encounter (statuses as of 03/30/2023) Resolved Problems Problem Noted Date Diagnosed Date Resolved Date ADVANCE DIRECTIVE INFORMATION 07/20/2006 06/03/2017 Overview: No, Advance Directive brochure given to patient at prior appointment. Headache 10/17/2003 06/03/2017 Overview: ICD-10 update of inactive term Malaise and fatigue 10/17/2003 06/03/20 17 Reflux esophagitis 7 documented as of this encounter (statuses as of 03/30/2023) Immunizations Name Administration Dates Next Due Pneumococcal Conjugate Vaccine, 20-valent (Prevn ar20) 02/19/2023 Pneumococcal Polysaccharide PPV23 (Pneumovax) TDAP (age 10 and older)(Boostrix) 11/17/2017 documented as of this encounter Social History Tobacco Use Types Packs/Day Years Used Date Smoking Tobacco: Every Day Cigarettes 1.3 30 Smokeless Tobacco: Never Alcohol Use Standard Drinks/Week Comments No 0 (1 standard drink = 0.6 oz pur e alcohol) PHQ-2 Answer Date Recorded PHQ Adult Total Score 0 10/19/2020 Hunger Vital Sign Answer Date Recorded Within the past 12 months, y ou worried that your food would run out before you got the money to buy more. Never true 10/20/19 21 Within the past 12 months, t he food you bought just didn't last and you didn't have money to get more. Never true 10/19/2020 Sex and Gender Information Value Date Recorded Sex Assigned at Not on file Gender Identity Not on file Sexual Orientation Not on file Job Start Date Occupation Industry Not on file Not on file Not on file documented as of this encounter Miscellaneous Notes * Telephone Encounter - Lucero Aguayo MD - 03/30/2023 12:37 PM EDT As per neuro notes., f/u PCP and euro as scheduled. * Telephone Encounter - Beryl Ledesma CMA - 03/27/2023 4:24 PM EDT Images from the original note were not included. Mayelin Oliveros MD to [place] 4:19 PM Not related to patient's symptoms. [...] an unexpected or indeterminate finding on Hiren Clarice Starks ([id number]) and asks that you review the following [...] Thank you, TYREE Nieves Client Service Rep Diagnostic Medicine [place] documented in this encounter Plan of Treatment Upcoming Encounters Date Type Department Care Team (Late st Contact Info) Description 05/15/2023 2:00 PM EST Cardiac Studies Cardiac Studies, [address] [address] 06/17/2023 8:00 AM EST Laboratory Laboratory, [facility] [address] [place] [address] [facility] [address] [place] [address] 06/24/2023 4:00 PM EST Office Visit Family Practice [facility] [address] [place] [address] Reynold Levin MD 132 [place] [address] 07/20/2023 8:40 AM EST Office Visit Neurology [facility] 200 [place] [address] Mayelin Oliveros MD 200 [facility] [place] [address] Scheduled Procedures Name Priority Associated Diagnoses Date/Ti [...] 03/06/2018 LUNG CANCER SCREENING - USE SMARTSET [id number] Completed 09/10/2018, 02/24/2002 Pneumococcal Vaccine: Pediatrics (0 [...] filedocumented as of this encounter Care Teams Hazardous Materials Handler Relationship Specialty Start Date End Date Hung Deleon DO [address] [place] [address] PCP - General Family Medicine 01/31/21 documented as of this encounter
--- OUTSIDE RECORDS SUMMARY | 2023-04-24 23:30 | External Medical Summary | Summary of Care ---
Author Name Unknown Organization [facility] Address [address] [place] [address] Phone [phone] Care Team Providers Care Bailer Operators Supervisor Name Role Phone Hung Deleon DO Primary Care Provider Reason for Visit * Reason Onset Date Comments Test Results 03/27/2023 Unexpected or In determinate Result Encounter Details Date Type Department Care Team (Late st Contact Info) Description 03/27/2023 Telephone Laboratory, [place] [address] [place] [address] Lucero Aguayo MD 200 [place] [address] Test Results (Unexpected or Indeterminate ... Allergies Active Allergy Reactions Criticality Noted Date Comments Sulfa Antibiotics Rash Medium 07/29/2019 SOB documented as of this encounter (statuses as of 03/31/2023) Medications Medication Sig Dispensed Refills Start Date [...] as of this encounter (statuses as of 03/31/2023) Active Problems Problem Noted Date Diagnosed Date Tobacco use disorder 10/17/2003 documented as of this encounter (statuses as of 03/31/2023) Resolved Problems Problem Noted Date Diagnosed Date Resolved Date ADVANCE DIRECTIVE INFORMATION 07/20/2006 06/03/2017 Overview: No, Advance Directive brochure given to patient at prior appointment. Headache 10/17/2003 06/03/2017 Overview: ICD-10 update of inactive term Malaise and fatigue 10/17/2003 06/03/20 17 Reflux esophagitis 7 documented as of this encounter (statuses as of 03/31/2023) Immunizations Name Administration Dates Next Due Pneumococcal [...] encounter Miscellaneous Notes * Telephone Encounter - Gemini Ojeda LPN - 03/31/2023 10:23 AM EDT Patient returned call. Informed of message. Verbalized understanding. * Telephone Encounter - Lucero Aguayo MD - 03/30/2023 12:37 PM EDT As per neuro notes., f/u PCP and euro as scheduled. * Telephone Encounter - Beryl Ledesma CMA - 03/27/2023 4:24 PM EDT Images from the original note were not included. Mayelin Oliveros MD to [place] 4:19 PM Not related to patient's symptoms. [...] unexpected or indeterminate finding on Hiren Starks ([id number]) and asks that you review the following [...] reviewed. Thank you, TYREE Nieves Client Service [facility] documented in this encounter Plan of Treatment Upcoming Encounters Date Type Department Care Team (Late st Contact Info) Description 05/15/2023 2:00 PM EST Cardiac Studies Cardiac Studies, [address] [address] 06/17/2023 8:00 AM EST Laboratory Laboratory, [facility] [id number] [facility] 132 [facility] [place] [address] 06/24/2023 4:00 PM EST Office Visit Family Practice [facility] [address] [facility] [address] Reynold Levin MD 132 [place] [address] 07/20/2023 8:40 AM EST Office Visit Neurology [facility] [address] [facility] [place] [address] Mayelin Oliveros MD [address] [facility] [place] [address] Scheduled Procedures Name Priority Associated Diagnoses Date/Ti [...] 03/06/2018 LUNG CANCER SCREENING - USE SMARTSET 168[address] Completed 09/10/2018, 02/24/2002 Pneumococcal Vaccine: Pediatrics (0 [...] filedocumented as of this encounter Care Teams Bailer Operators Supervisor Relationship Specialty Start Date End Date Hung Deleon DO [address] [place] [address] PCP - General Family Medicine 01/31/21 documented as of this encounter
--- OUTSIDE RECORDS SUMMARY | 2023-04-24 23:31 | External Medical Summary | Summary of Care ---
Author Name Unknown Organization [facility] Address [address] [facility] [address] Phone [phone] Care Team Providers Care Forgeman Helper Name Role Phone Hung Deleon DO Primary Care Provider Reason for Visit * Reason Comments Outpatient Testing Encounter Details Date Type Department Care Team Description 02/19/2023 Laboratory Laboratory [facility] [place] [address] [place] [address] [place], [facility] [place] [address] [place] [address] Unilateral occipital headache; Transient weakness of left lower extremity; Weakness of left upper extremity Allergies Active Allergy Reactions Severity Noted Date [...] Office Visit Neurology Mayelin Oliveros MD 200 [place] [address] Pending Results Name Type Priority Associated Diagnoses Date /Time CREATININE Lab Routine Unilateral occipital headache Transient weakness of left lower extremity Weakness of left upper extremity 02/19/2023 10:00 AM EDT Scheduled Procedures Name Priority Associated [...] 11/17/2017 LUNG CANCER SCREENING - USE SMARTSET [id number] Completed 09/10/2018, 02/24/2002 Pneumococcal Vaccine: Pediatrics (0 [...] this encounter Visit Diagnoses Diagnosis Unilateral occipital headache Headache Transient weakness of left lower extremity Weakness of left upper extremity Other musculoskeletal symptoms referable to limbs documented in this encounter Care Teams Forgeman Helper Relationship Specialty Start Date End Date Hung Deleon DO [address] [place] [address] PCP - General Family Medicine 01/31/21 documented as of this encounter
--- OUTSIDE RECORDS SUMMARY | 2023-04-24 23:31 | External Medical Summary ---
Author Name Unknown Address Unknown Organization [facility] [place] [id number] Laboratory Report Ordering Provider Test Date Status ADRIANNE ESCALANTE 02/19/2023 10:00:40 Final Observation Date Value Abnormality Reference (Units ) Status Creatinine 02/19/2023 10:00:40 1.2 0.6-1.2 (mg/dL) Final Glomerular filtration rate/1.73 sq M.predicted [Volume Rate/Area] in Serum, Plasma or Blood by Creatinine-based formula (CKD-EPI) 02/19/2023 10:00:40 69 >=60 (mL/min) Final eGFR is calculated based on the CKD-EPI 2020 equation Performing Location [facility] [place] [address]
--- OUTSIDE RECORDS SUMMARY | 2023-04-25 00:28 | External Medical Summary | Summary of Care ---
Author Name Unknown Organization [facility] Address [address] [place] [address] Phone [phone] Care Team Providers Care Requirements Engineer Name Role Phone Unavailable Primary Care Provider Unavailabl e Reason for Visit * Reason Comments Cyst Painful Cyst in L oin area, has had for 20 yrs, has flared up Encounter Details Date Type Department Care Team (Late st Contact Info) Description 04/22/2023 5:40 PM EST Office Visit Family Practice [facility] [address] [place] [address] Patricia Proctor, [address] [place] [address] Swelling of left half of scrotum* Allergies Active Allergy Reactions Criticality Noted Date Comments Sulfa Antibiotics Rash Medium 07/29/2019 SOB documented as of this encounter (statuses as of 04/22/2023) Medications Medication Sig Dispensed Refills Start Date End Date Status Aspirin 81 MG Oral Tablet Chewable Take 1 Tablet by mouth in the morning. 0 03/09/2023 Active aspirin enteric coated 81 MG TBEC Take 1 Tablet by mouth in the morning. 100 Tab 3 06/03/2017 04/22/2023 Discontinued( Medication List Clean Up) Rosuvastatin Calcium 10 MG Oral Tablet (Crestor)Indicati ons:Dyslipidemia, goal LDL below 70,History of TIA (transient ischemic attack) Take 1 Tablet by mouth in the morning. 90 Tablet 1 03/10/2023 04/22/2023 Discontinued( Medication List Clean Up) documented as of this encounter (statuses as of 04/22/2023) Active Problems Problem Noted Date Diagnosed Date Tobacco use disorder 10/17/2003 documented as of this encounter (statuses as of 04/22/2023) Resolved Problems Problem Noted Date Diagnosed Date Resolved Date ADVANCE DIRECTIVE INFORMATION 07/20/2006 06/03/2017 Overview: No, Advance Directive brochure given to patient at prior appointment. Headache 10/17/2003 06/03/2017 Overview: ICD-10 update of inactive term Malaise and fatigue 10/17/2003 06/03/20 17 Reflux esophagitis 7 documented as of this encounter (statuses as of 04/22/2023) Immunizations Name Administration Dates Next Due Pneumococcal [...] Sign Reading Time Taken Comments Blood Pressure 120/60 04/22/2023 5:33 PM EST Pulse 84 04/22/2023 5:33 PM EST Temperature 37.9 C (100.2 F) 04/22/2023 5:[address] Respiratory Rate 16 04/22/2023 5:33 PM EST Oxygen Saturation - - Inhaled Oxygen Concentration - - Weight 72.6 kg (160 lb) 04/22/2023 5:33 PM EST Height - - Body Mass Index 23.97 03/09/2023 10:22 AM EDT documented in this encounter Progress Notes * Patricia Proctor, DO - 04/22/2023 6:04 PM EST Subjective: Hiren Starks is a 53 year old male. Chief Complaint Patient presents with Cyst Painful Cyst in L groin area, has had for 20 yrs, has flared up HPI: Pt c/o painful cyst in his L groin area, present for several years, worse over the past 3 days. Has drained in the past. Usually aggravated by physical labor which he was doing - lifting, etc. + fever, feels sick to his stomach, very painful. Pt reports these cysts usually drain on their own but this hasn't. PHM: Patient Active Problem List Diagnosis Code Tobacco use disorder F17.200 Current Outpatient Medications Medication Sig Dispense Refill Aspirin 81 MG Oral Tablet Chewable Take 1 Tablet by mouth in the morning. No current facility-administered medications for this visit. Past Medical History: Diagnosis Date Reflux esophagitis Past Surgical History: Procedure Laterality Date COLONOSCOPY, DIAGNOSTIC (RECTUM) 07/03/2017 adenomatous & TVA polyps, repeat 2 yrs/COLONOSCOPY FLEXIBLE PROXIMAL DIAGNOSTIC performed by Tacos Narayanan MD at END[facility] COLONOSCOPY, DIAGNOSTIC (RECTUM) 08/09/2019 adenomatous polyps, diverticulosis, repeat 3 yrs / COLONOSCOPY FLEXIBLE PROXIMAL DIAGNOSTIC performed by Tacos Narayanan MD at ENDOSCOPY [facility] REMOVE TONSILS & ADENOIDS, UNDER 12 T & A, age<12 RMV LSN SCLP,NCK,EXT 2.1-3.0CM Cyst on neck Review of patient's allergies indicates: Allergen Reactions Sulfa Antibiotics Rash SOB Objective: BP 120/60 (BP Site: Left Arm, BP Position: Sitting, BP Cuff Size: Regular) | Pulse 84 | Temp 37.9 C (100.2 F) (Tympanic) | Resp 16 | Wt 72.6 kg (160 lb) | BMI 23.97 kg/m | BSA 1.87 m Review of Systems: As per HPI, all other ROS neg. Physical Exam: General: alert and ill looking Heart: regular rate & rhythm, no murmur, and no gallops Lungs: chest symmetric with normal AP diameter, no chest deformities noted, no chest wall tenderness, lungs clear to auscultation Abd: soft, NT, + BS Exam (Male): normal circumcised penis, + L groin lump, erythema, warmth, tenderness and swellingof L testicle; no obvious areas of fluctuance or pointing Swelling of left half of scrotum (Primary) Ddx inguinal hernia v. Abscess w/surrounding cellulitis Concern for more severe infection given fever Recommend ER evaluation for IV abx, imaging, surgical mgt if needed Follow up: as needed. Patricia Proctor DO documented in this encounter Plan of Treatment Upcoming Encounters Date Type Department Care Team (Late st Contact Info) Description 05/11/2023 1:00 PM EST Office Visit Neurology [facility] [address] [place] [address] Mayelin Oliveros MD [address] [facility] [address] [facility] [address] 05/15/2023 2:00 PM EST Cardiac Studies Cardiac Studies, [address] [address] 06/17/2023 8:00 AM EST Laboratory Laboratory, [facility] [address] [place] [id number] Jett Kramer [facility] [address] [place] [address] 06/24/2023 4:00 PM EST Office Visit Family Practice [facility] [address] [facility] [place] [address] Reynold Levin MD [address] [place] [address] Scheduled Procedures Name Priority Associated Diagnoses Date/Ti [...] 03/06/2018 LUNG CANCER SCREENING - USE SMARTSET [id number] Completed 09/10/2018, 02/24/2002 Pneumococcal Vaccine: Pediatrics (0 [...] as of this encounter Visit Diagnoses Diagnosis Swelling of left half of scrotum- Primary documented in this encounter"
== END 2023-04-24 12:41 | disposition home or self-care (01) | DRG 728 ==
LOC: ED 18:37 → 3E 04-23 01:31